=== PATIENT | male | born 1995 | race Caucasian/White ===

== ENCOUNTER 2017-08-30 13:18 | Emergency (ER) | payer SELFPAY ==
--- NOTE | 2017-08-30 15:36 | ER Document Report ---
ED Oral Problem - General Chief Complaint: Mouth Problem Stated Complaint: MOUTH PAIN Time Seen by Provider: 08/30/17 15:21 Mode of Arrival: Ambulatory Information source: Patient - HPI Patient complains to provider of: Toothache Onset: Yesterday Onset: Gradual Quality of pain: Achy Severity: Moderate Associated symptoms: Facial pain, Fever, Toothache. denies: Chills, Cough, Decreased appetite, Dental decay, Difficulty speaking, Drainage, Drooling, Earache, Headache, Jaw pain, Short of breath, Sweaty, Tongue swelling, Unable to swallow, White patches in mouth Notes: Patient arrives with complaints of left upper central incisor pain started yesterday. The patient has history of dental disease and has a partial in this area. Feels like the area swollen. He denies any injury. Reports that he had a fever yesterday. No fever today. No difficulty breathing or swallowing. He denies any nausea vomiting diarrhea. No rash. No swelling. No headache or blurred vision. No numbness tingling weakness. The patient denies any further complaints at this time. - Related Data Allergies/Adverse Reactions: amoxicillin [Amoxicillin] Allergy (Unknown, Verified 05/21/13 09:51) Penicillins Allergy (Verified 08/30/17 13:20) Past Medical History - Social History Smoking Status: Unknown if Ever Smoked Family History: Reviewed & Not Pertinent Pulmonary Medical History: Reports: Hx Asthma Psychiatric Medical History: Reports: Hx Depression Past Surgical History: Reports: Hx Orthopedic Surgery - R middle finger, Hx Tonsillectomy - Immunizations Immunizations up to date: Yes Hx Diphtheria, Pertussis, Tetanus Vaccination: Yes Review of Systems - Review of Systems -: Yes All other systems reviewed and negative Physical Exam - Vital signs Vitals: Temp Pulse Resp BP Pulse Ox 97.6 F 83 18 117/58 L 97 08/30/17 13:35 08/30/17 13:35 08/30/17 13:35 08/30/17 13:35 08/30/17 13:35 - Notes Notes: GENERAL: alert, cooperative, nontoxic, no distress. HEAD: normocephalic, atraumatic EYES: conjunctiva pink without discharge, no external redness or swelling. EARS: no external swelling, no external redness NOSE: atraumatic, no external swelling MOUTH/THROAT: mucous membranes moist and pink. Widespread dental decay. Tenderness to the gum of the left central incisor upper. There is no drainable abscess identified. No palatal swelling. No trismus or drooling. No facial swelling. No redness. No stridor. NECK: soft, supple, full range of motion, no meningismus. CHEST: no distress, lungs clear and equal throughout. No wheezing, rales, rhonchi. CARDIAC: regular rate and rhythm, no murmur, normal capillary refill, normal pulses. BACK: full range of motion, no CVA tenderness. EXTREMITIES: full range of motion of all extremities. No redness, no swelling. NEURO: alert and oriented 3, no focal deficits, full range of motion of all extremities. PYSCH: appropriate mood, affect. Patient is cooperative. SKIN: pink, warm, dry, no rash. Course - Re-evaluation Re-evalutation: 08/30/17 15:33 Patient is nontoxic appearing with stable vitals. The patient arrives with dental pain that started yesterday. The patient is noted to have widespread dental decay. The area of pain there is no obvious abscess but there is a dental caries noted. No drainable abscess noted. No facial swelling or facial cellulitis. No sign of Ortega's angina. Airway is patent and intact. Patient has a history of penicillin allergy, therefore the patient will be given a prescription for clindamycin as well as a prescription for Voltaren to take for pain. He will be given referrals to dentist with instructions to follow-up with a dentist at the next available appointment. He should follow-up sooner for increased pain, fever, swelling, difficulty breathing or swallowing, or for any further concerns. The patient's emergency department workup and current diagnosis were explained to the patient and or family. Follow-up instructions were provided. Medications if prescribed were discussed. Instructions for when to return to the emergency department including specific worrisome symptoms were discussed with the patient and/or family. - Vital Signs Vital signs: Temp Pulse Resp BP Pulse Ox 97.6 F 83 18 117/58 L 97 08/30/17 13:35 08/30/17 13:35 08/30/17 13:35 08/30/17 13:35 08/30/17 13:35 Discharge - Discharge Clinical Impression: Pain, dental Condition: Stable Disposition: HOME, SELF-CARE Instructions: Clindamycin ([facility]), Toothache ([facility]), Dentist Additional Instructions: Take medications as prescribed. Follow-up with a dentist at the next available appointment. Follow-up sooner for increased pain, fever, difficulty breathing or swallowing, or for any further concerns. Prescriptions: Clindamycin HCl 300 mg PO TID #60 capsule Diclofenac Sodium [Voltaren 50 Mg Tablet.Dr] 50 mg PO BID #20 tablet.dr Forms: Smoking Cessation Education
[2017-08-30 16:12] VITALS: BP 125/74
== END 2017-08-30 16:12 | disposition home or self-care (01) ==
LOC: ER 13:18
DX: K02.9 Dental caries, unspecified (principal); K08.89 Other specified disorders of teeth and supporting structures; J45.909 Unspecified asthma, uncomplicated; Z88.0 Allergy status to penicillin
CPT/HCPCS: 99282

== ENCOUNTER 2017-09-01 09:45 | Emergency (ER) | payer SELFPAY ==
[2017-09-01] MEDS ORDERED: LIDOCAINE 1% INJ-PF (10 MG/ML) 30 ML SDV INJ ONE (10:47)
--- NOTE | 2017-09-01 11:32 | ER Document Report ---
HPI - HPI Pain Level: 5 Past Medical History - Social History Smoking Status: Never Smoker Chew tobacco use (# tins/day): No Frequency of alcohol use: None Drug Abuse: None Family History: Reviewed & Not Pertinent Patient has suicidal ideation: No Patient has homicidal ideation: No Pulmonary Medical History: Reports: Hx Asthma Renal/ Medical History: Denies: Hx Peritoneal Dialysis Psychiatric Medical History: Reports: Hx Depression Past Surgical History: Reports: Hx Orthopedic Surgery - R middle finger, Hx Tonsillectomy - Immunizations Immunizations up to date: Yes Hx Diphtheria, Pertussis, Tetanus Vaccination: Yes Vertical Provider Document - INFECTION CONTROL TRAVEL OUTSIDE OF THE [place] IN LAST 30 DAYS: No - RESPIRATORY O2 Sat by Pulse Oximetry: 96 Course - Re-evaluation Re-evalutation: 09/01/17 11:32 procedure: 1% lidocaine 1 ml to anesthetize the abscess above the front left incisor, 2ml pus withdrawn with 18 gauge needle. Pt has more clindamycin to take 09/01/17 11:43 apical pulse 96 at this time, states less pressure - Vital Signs Vital signs: Temp Pulse Resp BP Pulse Ox 99.3 F 120 H 18 139/71 H 96 09/01/17 09:48 09/01/17 09:48 09/01/17 09:48 09/01/17 09:48 09/01/17 09:48 Discharge - Discharge Clinical Impression: Dental abscess drainage Condition: Good Disposition: HOME, SELF-CARE Instructions: Dentist, Dental Infection or Abscess ([facility]), Clindamycin ([facility]) Additional Instructions: warm compress today, it will continue to drain to er any concerns see the dentist
[2017-09-01 11:53] VITALS: BP 118/69
== END 2017-09-01 11:54 | disposition home or self-care (01) ==
LOC: ER 09:45
DX: K04.7 Periapical abscess without sinus (principal); J45.909 Unspecified asthma, uncomplicated
CPT/HCPCS: 99282; 10021; J3490

== ENCOUNTER 2018-10-08 08:17 | Emergency (ER) | payer SELFPAY ==
[2018-10-08 08:22] VITALS: BP 150/65
[2018-10-08] MEDS ORDERED: NORMAL SALINE 1000 ML 1,000 ML IV ONE (09:36)
[2018-10-08] MEDS ORDERED: MORPHINE SULFATE 10 MG/ML INJ IV ONE (09:36)
[2018-10-08] MEDS ORDERED: ONDANSETRON HCL INJ/PF 4 MG/2 ML SDV IV ONE (09:36)
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
[2018-10-08 10:28] LABS: ABSOLUTE LYMPHOCYTES (AUTO) 1.6 10^3/uL (0.5-4.7); ABSOLUTE MONOCYTES (AUTO) 0.4 10^3/uL (0.1-1.4); ABSOLUTE NEUT (AUTO) 4.4 10^3/uL (1.7-8.2); BASOPHILS % (AUTO) 0.3 % (0-2); EOSINOPHILS % (AUTO) 0.4 % (0-6); HEMATOCRIT 48.2 % (37.9-51.0); LYMPHOCYTES % (AUTO) 25.4 % (13-45); MEAN CORPUSCULAR HEMOGLOBIN 30.4 pg (27.0-33.4); MEAN CORPUSCULAR HGB CONC 35.3 g/dL (32.0-36.0); MEAN CORPUSCULAR VOLUME 86 fl (80-97); MONOCYTES % (AUTO) 6.3 % (3-13); PLATELET COUNT 257 10^3/uL (150-450); RED CELL DISTRIBUTION WIDTH 12.9 % (11.5-14.0); SEGMENTED NEUTROPHILS % (AUTO) 67.6 % (42-78); TOTAL CELLS COUNTED % (AUTO) 100 %; WHITE BLOOD COUNT 6.5 10^3/uL (4.0-10.5)
[2018-10-08 10:51] LABS: ANION GAP 13 (5-19); BLOOD UREA NITROGEN 10 mg/dL (7-20); CALCIUM 11.7 mg/dL (8.4-10.2); CARBON DIOXIDE 28 mmol/L (22-30); CHLORIDE 103 mmol/L (98-107); GLUCOSE 102 mg/dL (75-110); POTASSIUM 4.2 mmol/L (3.6-5.0)
[2018-10-08 11:36] LABS: APPEARANCE,URINE CLEAR; BILIRUBIN,URINE NEGATIVE (NEGATIVE); COLOR,URINE YELLOW; GLUCOSE, URINE NEGATIVE (NEGATIVE); KETONES,URINE TRACE mg/dL (NEGATIVE); LEUKOCYTE ESTERASE,URINE NEGATIVE (NEGATIVE); NITRITE,URINE NEGATIVE (NEGATIVE); PROTEIN,URINE NEGATIVE (NEGATIVE); URINE SPECIFIC GRAVITY 1.016; UROBILINOGEN,URINE NEGATIVE mg/dL (<2.0)
--- NOTE | 2018-10-08 12:07 | RADIOLOGY REPORT (SQ) ---
EXAM DESCRIPTION: U/S SCROTUM W/DOPPLER COMPLETED DATE/TIME: 10/08/2018 11:38 am REASON FOR STUDY: pain COMPARISON: 12/04/2013 TECHNIQUE: Static and realtime robison scale imaging of the scrotum and testes. Selected color Doppler and spectral images recorded to document blood flow. LIMITATIONS: None. FINDINGS: RIGHT: TESTICLE: Normal size measuring 4.1 x 3.3 x 2.5 cm. Normal echotexture. Normal blood flow. No mass. EPIDIDYMIS: Unremarkable in size. The epididymal head measures 1.2 cm maximally. There is a 3 mm ep ididymal head cysts. HYDROCELE OR VARICOCELE: Trace hydrocele. HERNIA OR EXTRA-TESTICULAR MASS: No. OTHER: No other significant finding. LEFT: TESTICLE: Normal size measuring 3.9 x 2.6 x 2.5 cm. Normal echotexture. Normal blood flow. No mass. EPIDIDYMIS: Unremarkable in size. Epididymal head measures 1.4 cm maximally. There is a 2 mm cyst. HYDROCELE OR VARICOCELE: Trace hydrocele. HERNIA OR EXTRA-TESTICULAR MASS: No. OTHER: 3 mm calcification along the medial left testicle(scrotal muriel), unchanged. IMPRESSION: Unremarkable testicular parenchyma bilaterally. No evidence of torsion. Trace hydroceles with small epididymal head cysts. TECHNICAL DOCUMENTATION: JOB ID: [id number]- All Rights Reserved Reading location - IP/workstation name: [email or web address]
[2018-10-08 13:46] LABS: CHLAM PCR NOT DETECTED (NOT DETECT); GON PCR NOT DETECTED (NOT DETECT)
== END 2018-10-08 12:49 | disposition home or self-care (01) ==
LOC: ER 08:17
DX: N50.811 Right testicular pain (principal); G89.29 Other chronic pain; N43.3 Hydrocele, unspecified; R50.9 Fever, unspecified; N50.3 Cyst of epididymis; J45.909 Unspecified asthma, uncomplicated; Z88.0 Allergy status to penicillin; Z87.442 Personal history of urinary calculi
CPT/HCPCS: 99284; 96361; 96374; 96375; 36415; 85025; 80048; 81001; 87491; 87591; 76870; 93976; J2270; J2405; J7030

== ENCOUNTER 2020-08-05 17:44 | Emergency (ER) | payer SELFPAY ==
[2020-08-05] MEDS ORDERED: MORPHINE SULFATE 10 MG/ML INJ IV ONE (18:55)
--- NOTE | 2020-08-05 18:59 | ER Document Report ---
ED Medical Screen (RME) - General Chief Complaint: Flank Pain Stated Complaint: FLANK PAIN Time Seen by Provider: 08/05/20 18:51 TRAVEL OUTSIDE OF THE [place] IN LAST 30 DAYS: No - HPI Notes: 08/05/20 18:57 24-year-old male presents to ED for evaluation of right-sided flank pain over the last several days. Notes history of stones in the past. Patient believes he passed a kidney stone 2 days ago. Reports that the pain is radiating from his right flank into his lower groin and is worse when he urinates. Denies fever chills or other complaints. - Related Data Allergies/Adverse Reactions: amoxicillin [Amoxicillin] Allergy (Unknown, Verified 08/05/20 18:44) Penicillins Allergy (Verified 08/05/20 18:44) Past Medical History - Social History Chew tobacco use (# tins/day): No Frequency of alcohol use: None Drug Abuse: None Pulmonary Medical History: Reports: Hx Asthma Renal/ Medical History: Denies: Hx Peritoneal Dialysis Psychiatric Medical History: Reports: Hx Depression Past Surgical History: Reports: Hx Orthopedic Surgery - R middle finger, Hx Tonsillectomy - Immunizations Immunizations up to date: Yes Hx Diphtheria, Pertussis, Tetanus Vaccination: Yes Physical Exam - Vital signs Vitals: Temp Pulse Resp BP Pulse Ox 97.9 F 106 H 20 129/67 H 99 08/05/20 17:48 08/05/20 17:48 08/05/20 17:48 08/05/20 17:48 08/05/20 17:48 General: No acute distress. Alert and oriented x3. Sitting comfortably in a stretcher. Skin: Intact without any jaundice, pallor, or erythema. Warm and dry. Lungs: Clear to ausculation bilaterally. No wheezes, rhonchi, rales. Equal chest expansion. No retractions. Abdomen: Soft, nontender to palpation, nondistended. Positive bowel sounds in all 4 quadrants. No hepatosplenomegaly. No masses. CVA tenderness to right side. Neuro: GCS 15. Moving all extremities without discomfort. Extremities: No calf tenderness or edema. No cyanosis or clubbing. Radial and pedal pulses 2+ bilaterally. Brisk capillary refill. Psych: Mood and affect appropriate. Course - Vital Signs Vital signs: Temp Pulse Resp BP Pulse Ox 97.9 F 106 H 20 129/67 H 99 08/05/20 17:48 08/05/20 17:48 08/05/20 17:48 08/05/20 17:48 08/05/20 17:48
[2020-08-05] MEDS ORDERED: MORPHINE SULFATE 10 MG/ML INJ IM ONE (19:36)
[2020-08-05 19:47] LABS: ABSOLUTE BASOPHILS # (AUTO) 0.1 10^3/uL (0.0-0.2); ABSOLUTE EOSINOPHILS # (AUTO) 0.2 10^3/uL (0.0-0.6); ABSOLUTE LYMPHOCYTES (AUTO) 2.6 10^3/uL (0.5-4.7); ABSOLUTE MONOCYTES (AUTO) 0.7 10^3/uL (0.1-1.4); ABSOLUTE NEUT (AUTO) 4.2 10^3/uL (1.7-8.2); BASOPHILS % (AUTO) 0.7 % (0-2); EOSINOPHILS % (AUTO) 2.4 % (0-6); HEMOGLOBIN 15.3 g/dL (13.5-17.0); MEAN CORPUSCULAR HEMOGLOBIN 30.1 pg (27.0-33.4); MEAN CORPUSCULAR HGB CONC 34.9 g/dL (32.0-36.0); MEAN CORPUSCULAR VOLUME 86 fl (80-97); MONOCYTES % (AUTO) 9.6 % (3-13); PLATELET COUNT 244 10^3/uL (150-450); RED CELL DISTRIBUTION WIDTH 13.1 % (11.5-14.0); SEGMENTED NEUTROPHILS % (AUTO) 54.3 % (42-78); TOTAL CELLS COUNTED % (AUTO) 100 %; WHITE BLOOD COUNT 7.8 10^3/uL (4.0-10.5)
[2020-08-05 19:53] LABS: APPEARANCE,URINE SLIGHTLY-CLOUDY; BILIRUBIN,URINE NEGATIVE (NEGATIVE); CALCIUM OXALATE CRYSTALS,URINE MODERATE /HPF; COLOR,URINE YELLOW; GLUCOSE, URINE NEGATIVE (NEGATIVE); KETONES,URINE NEGATIVE (NEGATIVE); LEUKOCYTE ESTERASE,URINE NEGATIVE (NEGATIVE); NITRITE,URINE NEGATIVE (NEGATIVE); PROTEIN,URINE 30 mg/dL (NEGATIVE); UROBILINOGEN,URINE NEGATIVE mg/dL (<2.0)
[2020-08-05 20:04] LABS: ALBUMIN 4.5 g/dL (3.5-5.0); ALKALINE PHOSPHATASE 79 U/L (38-126); ANION GAP 6 (5-19); ASPARTATE AMINO TRANSFERASE 26 U/L (17-59); BILIRUBIN,DIRECT 0.1 mg/dL (0.0-0.4); BILIRUBIN,TOTAL 0.4 mg/dL (0.2-1.3); BLOOD UREA NITROGEN 12 mg/dL (7-20); CALCIUM 9.9 mg/dL (8.4-10.2); CARBON DIOXIDE 33 mmol/L (22-30); CHLORIDE 102 mmol/L (98-107); GLUCOSE 88 mg/dL (75-110); TOTAL PROTEIN 7.4 g/dL (6.3-8.2)
--- NOTE | 2020-08-05 20:21 | RADIOLOGY REPORT (SQ) ---
EXAM DESCRIPTION: CT ABD/PELVIS NO ORAL OR IV CLINICAL HISTORY: 24 years Male; flank pain TECHNIQUE: CT of the abdomen and pelvis without intravenous contrast.. Oral contrastWas not used. All CT scans at this facility use dose modulation, iterative reconstruction, and/or weight based dosing when appropriate to reduce radiation dose to as low as reasonably achievable. This exam was performed according to our department optimization program which includes automated exposure control, adjustment of the mA and/or kv according to patient size and/or use of iterative reconstruction technique. COMPARISON: None. FINDINGS: Lower chest:The lung bases are clear. The visualized portion of heart and great vessels are normal. Abdomen: Liver and biliary tree: Unenhanced liver and gallbladder are unremarkable. Pancreas: Normal Spleen:Within normal limits Kidneys: There is right-sided hydronephrosis and hydroureter. This is secondary to a 4 mm proximal ureteral stone. There is perinephric and periureteral edema also seen on the right. Distally the ureter is decompressed. The left kidney is normal. No renal stones are seen bilaterally. Adrenal glands:Within normal limits Vascular structures:Within normal limits Retroperitoneum: No mass or lymphadenopathy Abdominal wall: Small umbilical hernia containing omentum. GI: Large amount of ingested material is noted in the stomach. The bowel is of normal caliber. No focal bowel wall thickening. No inflammation. Appendix: The appendix appears normal. General: No free air. No free fluid Pelvis: Lymph nodes: No mass or lymphadenopathy Bladder: Bladder is mostly empty. Pelvis: No pelvic mass or adenopathy. Bones: No acute bone findings. IMPRESSION: Right-sided hydronephrosis and hydroureter secondary to a 4 mm proximal ureteral stone.
--- NOTE | 2020-08-05 20:39 | ER Document Report ---
ED GI/ - General Chief Complaint: Flank Pain Stated Complaint: FLANK PAIN Time Seen by Provider: 08/05/20 18:51 TRAVEL OUTSIDE OF THE [place] IN LAST 30 DAYS: No - HPI Notes: 08/05/20 20:33 24-year-old male presents to ED for evaluation of right sided flank pain for the last 2 days. Patient reports pain radiates into the corresponding lower abdomen. Patient reports nausea, vomiting, and dysuria. Patient denies penile discharge, chest pain, shortness of breath, rash, fever, chills, or diarrhea. Reports history of nephrolithiasis in the past. Notes that the last time was in 2014. States that he does not have a urologist and has never required a stent in the past. - Related Data Allergies/Adverse Reactions: amoxicillin [Amoxicillin] Allergy (Unknown, Verified 08/05/20 18:44) Penicillins Allergy (Verified 08/05/20 18:44) Past Medical History - Social History Smoking Status: Never Smoker Chew tobacco use (# tins/day): No Frequency of alcohol use: None Drug Abuse: None Family History: Reviewed & Not Pertinent Patient has homicidal ideation: No Pulmonary Medical History: Reports: Hx Asthma Renal/ Medical History: Denies: Hx Peritoneal Dialysis Psychiatric Medical History: Reports: Hx Depression Past Surgical History: Reports: Hx Orthopedic Surgery - R middle finger, Hx Tonsillectomy - Immunizations Immunizations up to date: Yes Hx Diphtheria, Pertussis, Tetanus Vaccination: Yes Review of Systems - Review of Systems Notes: Constitutional: Negative for fever. HENT: Negative for sore throat. Eyes: Negative for visual changes. Cardiovascular: Negative for chest pain. Respiratory: Negative for shortness of breath. Gastrointestinal: Negative for abdominal pain, vomiting or diarrhea. Genitourinary: Negative for dysuria. Musculoskeletal: Negative for back pain. + for flank pain. Skin: Negative for rash. Neurological: Negative for headaches, weakness or numbness. 10 point ROS negative except as marked above and in HPI. Physical Exam - Vital signs Vitals: Temp Pulse Resp BP Pulse Ox 97.9 F 106 H 20 129/67 H 99 08/05/20 17:48 08/05/20 17:48 08/05/20 17:48 08/05/20 17:48 08/05/20 17:48 General: No acute distress. Alert and oriented x3. Sitting comfortably in a stretcher. Skin: No jaundice, pallor, petechiae, or rashes. Warm and dry. Heart: Regular rate and rhythm. S1,S2. No murmurs, rubs, or gallops. Lungs: Clear to auscultation bilaterally. No wheezes, rhonchi, rales. Equal chest expansion. No retractions. Abdomen: Soft, tender to palpation in the right lower abdomen, nondistended. Positive bowel sounds in all 4 quadrants. No masses. CVA tenderness to the right side Back: No midline spinal TTP. No paraspinous muscular TTP. Neuro: GCS 15. Moving all extremities without discomfort. Psych: Mood and affect appropriate. Course - Re-evaluation Re-evalutation: 08/05/20 20:36 24-year-old patient presents to ED for evaluation of right sided flank pain. Patient was evaluated with CBC, CMP, UA. Lab work was found to be notable for blood in the urine and crystals. Patient further evaluated with CT scan of the abdomen and pelvis which was positive for right sided hydronephrosis and hydroureter with 4 mm stone. Imaging results discussed with the patient. Patient treated symptomatically with pain management, tordol, and zofran and flomax. Pain most likely secondary to nephrolithiasis. Patient advised to eat a bland diet and will be continued on the same. Patient understands to follow up with primary care physician as well as urology. Patient understands indications to return to the ER. Patient is agreeable with this plan. 08/05/20 21:06 - Vital Signs Vital signs: Temp Pulse Resp BP Pulse Ox 97.9 F 106 H 20 129/67 H 99 08/05/20 17:48 08/05/20 17:48 08/05/20 17:48 08/05/20 17:48 08/05/20 17:48 - Laboratory Results Result Diagrams: 08/05/20 19:30 08/05/20 19:30 Laboratory Results Interpreted: 08/05/20 08/05/20 19:30 19:30 Carbon Dioxide 33 H Urine Protein 30 H Urine Blood LARGE H Critical Laboratory Results Reviewed: No Critical Results - Radiology Results Critical Radiology Results Reviewed: No Critical Results Discharge - Discharge Clinical Impression: Nephrolithiasis, Flank pain Hydronephrosis Qualifiers: Hydronephrosis type: with renal calculous obstruction Qualified Code(s): N13.2 - Hydronephrosis with renal and ureteral calculous obstruction Condition: Stable Disposition: HOME, SELF-CARE Instructions: Toradol Injection ([facility]), Abdominal Pain ([facility]) Prescriptions: Ketorolac Tromethamine [Toradol 10 mg Tablet] 10 mg PO Q8HP PRN #15 tablet PRN Reason: Tamsulosin HCl [Flomax 0.4 mg Cap.sr] 0.4 mg PO DAILY #7 cap.sr.24h Hydrocodone/Acetaminophen [Clune 7.5-325 Tablet] 1 each PO TID #9 tablet Ondansetron [Zofran Odt 4 mg Tablet] 1 - 2 tab PO Q4H PRN #15 tab.rapdis PRN Reason: For Nausea/Vomiting Referrals: KAREN DUMONT MD [NO LOCAL MD] - Follow up as needed
[2020-08-05] MEDS ORDERED: HYDROCODONE/ACETAMINOPHEN 5-325 MG (6 TAB/ER DISP) PO PRN (21:02)
[2020-08-05] MEDS ORDERED: ONDANSETRON 4 MG TAB.RAPDIS PO ONE (21:02)
[2020-08-05] MEDS ORDERED: ONDANSETRON ODT 4 MG TAB (6 TAB/ER DISP) PO PRN (21:02)
[2020-08-05] MEDS ORDERED: KETOROLAC TROMETHAMINE 60 MG/2 ML SDV IM ONE (21:02)
[2020-08-05 21:25] VITALS: BP 127/66
== END 2020-08-05 21:25 | disposition home or self-care (01) ==
LOC: ER 17:44
DX: N13.2 Hydronephrosis with renal and ureteral calculous obstruction (principal); R31.9 Hematuria, unspecified; R11.2 Nausea with vomiting, unspecified; R30.0 Dysuria; R10.9 Unspecified abdominal pain; R10.813 Right lower quadrant abdominal tenderness; J45.909 Unspecified asthma, uncomplicated; Z88.0 Allergy status to penicillin
CPT/HCPCS: 99285; 96372; 36415; 83690; 85025; 80053; 81001; 74176; J1885; S0119; J2270

== ENCOUNTER 2020-08-13 13:24 | Emergency (ER) | payer SELFPAY ==
[2020-08-13] MEDS ORDERED: HYDROCODONE/ACETAMINOPHEN 10-325 MG TABLET PO ONE (14:35)
[2020-08-13] MEDS ORDERED: NORMAL SALINE 1000 ML 1,000 ML IV ONE (14:36)
[2020-08-13] MEDS ORDERED: KETOROLAC TROMETHAMINE INJ/PF 30 MG/1 ML SDV IV ONE (14:36)
--- NOTE | 2020-08-13 14:40 | ER Document Report ---
ED Medical Screen (RME) - General Chief Complaint: Possible Kidney Stone Stated Complaint: POSSIBLE KIDNEY STONES Time Seen by Provider: 08/13/20 14:33 Primary Care Provider: JOSE R MENDEZ [Primary Care Provider] - Follow up as needed TRAVEL OUTSIDE OF THE [place] IN LAST 30 DAYS: No - HPI Notes: 08/13/20 14:37 24-year-old male presents to the emergency room today for evaluation of right flank pain, pain is 5/5 has become progressively worse since he was seen in the emergency room a week ago. Reports he had a 4 mm stone that was "stuck", he has not had an opportunity to follow-up with urologist due to limitations with obtaining rides. States he is voiding but they are only small amounts of urine. Reports nausea and vomiting, has been taking Zofran that was prescribed to him last week. Denies any fevers or chills. Has tried [id number] Tylenol, ibuprofen and heat as well as drinking apple cider vinegar to help with his kidney stones without any relief. I have greeted and performed a rapid initial assessment of this patient. A comprehensive ED assessment and evaluation of the patient, analysis of test results and completion of the medical decision making process will be conducted by additional ED providers. PHYSICAL EXAMINATION: GENERAL: Well-appearing, well-nourished and in no acute distress. CV: s1, s2 regular LUNGS: No respiratory distress ABD: R cva tenderness on palpation The patient was evaluated during a global COVID-19 pandemic and that diagnosis was suspected/considered upon their initial presentation. Their evaluation, treatment and testing was consistent with current guidelines for patients who present with complaints or symptoms and may be related to COVID-19. - Related Data Allergies/Adverse Reactions: amoxicillin [Amoxicillin] Allergy (Unknown, Verified 08/05/20 18:44) Penicillins Allergy (Verified 08/05/20 18:44) Past Medical History Pulmonary Medical History: Reports: Hx Asthma Renal/ Medical History: Denies: Hx Peritoneal Dialysis Psychiatric Medical History: Reports: Hx Depression Past Surgical History: Reports: Hx Orthopedic Surgery - R middle finger, Hx Tonsillectomy - Immunizations Immunizations up to date: Yes Hx Diphtheria, Pertussis, Tetanus Vaccination: Yes Physical Exam - Vital signs Vitals: Temp Pulse Resp BP Pulse Ox 98.2 F 121 H 20 144/87 H 96 08/13/20 13:54 08/13/20 13:54 08/13/20 13:54 08/13/20 13:54 08/13/20 13:54 Course - Vital Signs Vital signs: Temp Pulse Resp BP Pulse Ox 98.2 F 121 H 20 144/87 H 96 08/13/20 13:54 08/13/20 13:54 08/13/20 13:54 08/13/20 13:54 08/13/20 13:54 Doctor's Discharge - Discharge Referrals: LOCALMD,NO [Primary Care Provider] - Follow up as needed
[2020-08-13 15:27] LABS: AMORPHOUS SEDIMENT,URINE TRACE /HPF; APPEARANCE,URINE SLIGHTLY-CLOUDY; BILIRUBIN,URINE NEGATIVE (NEGATIVE); COLOR,URINE YELLOW; GLUCOSE, URINE NEGATIVE (NEGATIVE); KETONES,URINE NEGATIVE (NEGATIVE); LEUKOCYTE ESTERASE,URINE TRACE (NEGATIVE); NITRITE,URINE NEGATIVE (NEGATIVE); PROTEIN,URINE NEGATIVE (NEGATIVE); URINE SPECIFIC GRAVITY 1.012; UROBILINOGEN,URINE NEGATIVE mg/dL (<2.0)
--- NOTE | 2020-08-13 16:07 | RADIOLOGY REPORT (SQ) ---
EXAM DESCRIPTION: U/S RETROPERITON (RENAL/AORTA) IMAGES COMPLETED DATE/TIME: 08/13/2020 3:54 pm REASON FOR STUDY: R renal pain, hx of nephrolithiasis COMPARISON: None. TECHNIQUE: Dynamic and static grayscale images acquired of the kidneys and bladder and recorded on P ACS. Additional selected color Doppler and spectral images recorded. LIMITATIONS: None. FINDINGS: RIGHT KIDNEY: Normal size. Normal echogenicity. No solid or suspicious masses. Pelv iectasis 2.2 cm. No calcifications. LEFT KIDNEY: Normal size. Normal echogenicity. No solid or suspicious masses. No hydronephrosi s. No calcifications. BLADDER: Decompressed. OTHER FINDINGS: No other significant finding. IMPRESSION: Dilated right renal pelvis without visualized urinary tract stones. TECHNICAL DOCUMENTATION: JOB ID: [id number] 2010 [employer]- All Rights Reserved Reading location - IP/workstation name: [email or web address]
[2020-08-13] MEDS ORDERED: KETOROLAC TROMETHAMINE INJ/PF 30 MG/1 ML SDV ONE (17:03)
[2020-08-13 17:33] LABS: ABSOLUTE EOSINOPHILS # (AUTO) 0.2 10^3/uL (0.0-0.6); ABSOLUTE LYMPHOCYTES (AUTO) 2.7 10^3/uL (0.5-4.7); ABSOLUTE MONOCYTES (AUTO) 0.7 10^3/uL (0.1-1.4); ABSOLUTE NEUT (AUTO) 4.3 10^3/uL (1.7-8.2); BASOPHILS % (AUTO) 0.6 % (0-2); EOSINOPHILS % (AUTO) 3.1 % (0-6); HEMATOCRIT 44.4 % (37.9-51.0); HEMOGLOBIN 15.4 g/dL (13.5-17.0); MEAN CORPUSCULAR HGB CONC 34.7 g/dL (32.0-36.0); MEAN CORPUSCULAR VOLUME 86 fl (80-97); MONOCYTES % (AUTO) 9.1 % (3-13); PLATELET COUNT 272 10^3/uL (150-450); RED BLOOD COUNT 5.13 10^6/uL (4.35-5.55); RED CELL DISTRIBUTION WIDTH 13.4 % (11.5-14.0); SEGMENTED NEUTROPHILS % (AUTO) 53.2 % (42-78); TOTAL CELLS COUNTED % (AUTO) 100 %; WHITE BLOOD COUNT 8.1 10^3/uL (4.0-10.5)
[2020-08-13 17:50] LABS: ALBUMIN 4.6 g/dL (3.5-5.0); ALKALINE PHOSPHATASE 93 U/L (38-126); ANION GAP 9 (5-19); ASPARTATE AMINO TRANSFERASE 32 U/L (17-59); BILIRUBIN,DIRECT 0.2 mg/dL (0.0-0.4); BILIRUBIN,TOTAL 0.4 mg/dL (0.2-1.3); BLOOD UREA NITROGEN 13 mg/dL (7-20); CALCIUM 10.1 mg/dL (8.4-10.2); CARBON DIOXIDE 29 mmol/L (22-30); CHLORIDE 103 mmol/L (98-107); GLUCOSE 97 mg/dL (75-110); TOTAL PROTEIN 7.5 g/dL (6.3-8.2)
[2020-08-13 20:52] VITALS: BP 138/82
[2020-08-13] MEDS ORDERED: HYDROCODONE/ACETAMINOPHEN 5-325 MG TABLET PO ONE (21:20)
--- NOTE | 2020-08-13 21:25 | ER Document Report ---
ED GI/ - General Chief Complaint: Flank Pain Stated Complaint: POSSIBLE KIDNEY STONES Time Seen by Provider: 08/13/20 14:33 Primary Care Provider: [facility] [Provider Group] - Follow up as needed [facility] [Provider Group] - Follow up as needed [facility] [Provider Group] - Follow up as needed [facility] [Provider Group] - Follow up as needed [facility] [Provider Group] - Follow up as needed KAREN DUMONT MD [NO LOCAL MD] - Follow up in 3-5 days JOSE R MENDEZ [NO LOCAL ] - Follow up as needed Mode of Arrival: Ambulatory Information source: Patient Notes: 24-year-old male presented to ED for complaint of right flank pain. He did have the pain of 5 out of 5 when he came to the emergency room. He was treated with Zofran Toradol and Flomax and Raven. He states last time he was here he had a 4 mm stone stuck in his urethra. He did not follow-up with a urologist because he could not find a ride. He states he has been having nausea and vomiting and is taking the Zofran he was prescribed last week. He denies any fevers chills. For examined the patient he had had blood and urine sent. His CT was negative for stone but he did have some dilatation still in the ureter he did still have blood in his urine. Constitutional: Negative for fever. HENT: Negative for sore throat. Eyes: Negative for visual changes. Cardiovascular: Negative for chest pain. Respiratory: Negative for shortness of breath. Gastrointestinal: Negative for abdominal pain, vomiting or diarrhea. Genitourinary: Right flank pain history of kidney stone recently. Musculoskeletal: Right flank pain Skin: Negative for rash. Neurological: Negative for headaches, weakness or numbness. 10 point ROS negative except as marked above and in HPI. VITAL SIGNS: Within normal limits. GENERAL: No acute distress, non-toxic appearance. HEAD: Normal with no signs of head trauma. EYES: PERRLA, EOMI, conjunctiva normal, no discharge. EARS: Hearing grossly intact. NOSE: Normal. THROAT: Oropharynx is normal. NECK: Normal range of motion, no tenderness, supple, no lymphadenopathy, No adenopathy, no JVD. CHEST: Clear breath sounds bilaterally. No wheezes, rales, or rhonchi. CARDIAC: Regular rate and rhythm. S1 and S2, without murmurs, gallops, or rubs. VASCULAR: No Edema. Peripheral pulses normal and equal in all extremities. ABDOMEN: Normal and soft with no tenderness, no masses or pulsatile masses. GASTROINTESTINAL: Bowel sounds normal GENITOURINARY: Right flank tenderness LYMPATHTIC: No lymphadenopathy noted. MUSCULOSKELETAL: Good range of motion of all major joints. Extremities without clubbing, cyanosis or edema. NEUROLOGICAL: Alert and oriented x 3. No focal sensory or strength deficits. Speech normal. Follows commands appropriately. PSYCHIATRIC: Normal Affect, judgement and mood. SKIN: Normal appearance with no rashes or lesions. TRAVEL OUTSIDE OF THE [place] IN LAST 30 DAYS: No - HPI Patient complains to provider of: Flank pain - Related Data Allergies/Adverse Reactions: amoxicillin [Amoxicillin] Allergy (Unknown, Verified 08/05/20 18:44) Penicillins Allergy (Verified 08/05/20 18:44) Past Medical History - General Information source: Patient - Social History Smoking Status: Never Smoker Frequency of alcohol use: None Drug Abuse: None Lives with: Family Family History: Reviewed & Not Pertinent Patient has suicidal ideation: No Patient has homicidal ideation: No - Past Medical History Cardiac Medical History: Reports: None Pulmonary Medical History: Reports: Hx Asthma EENT Medical History: Reports: None Neurological Medical History: Reports: None Endocrine Medical History: Reports: None Renal/ Medical History: Reports: Hx Kidney Stones Malignancy Medical History: Reports None GI Medical History: Reports: None Musculoskeletal Medical History: Reports None Skin Medical History: Reports None Psychiatric Medical History: Reports: Hx Depression Traumatic Medical History: Reports: None Infectious Medical History: Reports: None Past Surgical History: Reports: Hx Orthopedic Surgery - R middle finger, Hx Tonsillectomy - Immunizations Immunizations up to date: Yes Hx Diphtheria, Pertussis, Tetanus Vaccination: Yes Physical Exam - Vital signs Vitals: Temp Pulse Resp BP Pulse Ox 98.2 F 121 H 20 144/87 H 96 08/13/20 13:54 08/13/20 13:54 08/13/20 13:54 08/13/20 13:54 08/13/20 13:54 Course - Vital Signs Vital signs: Temp Pulse Resp BP Pulse Ox 97.9 F 85 20 138/82 H 98 08/13/20 20:51 08/13/20 20:51 08/13/20 20:51 08/13/20 20:51 08/13/20 20:51 - Laboratory Results Result Diagrams: 08/13/20 17:17 08/13/20 17:17 Laboratory Results Interpreted: 08/13/20 15:00 Urine Blood SMALL H Ur Leukocyte Esterase TRACE H Critical Laboratory Results Reviewed: No Critical Results - Radiology Results Critical Radiology Results Reviewed: No Critical Results Discharge - Discharge Clinical Impression: Right flank pain Condition: Stable Disposition: HOME, SELF-CARE Additional Instructions: Flank Pain We weren't able to prove an exact cause for your flank pain. Pain in the flank can be caused by a muscle strain or spasm. Sometimes a kidney stone causes pain, but can't be found on our tests. Infection in the kidney should be evident on a urine test. Early shingles can occasionally cause flank pain, without the rash that proves the diagnosis. On rare occasions, disease of the pancreas, aorta, spleen, or colon can create pain in the flank. At this time, there's no evidence of a dangerous condition, and it seems safe for you to be at home. If the pain goes away and does not come back, no further testing will be needed. If pain persists, or becomes more severe, we may need to repeat some tests or order additional new testing. Blood in the urine, urgency to urinate frequently, and pain that radiates to the groin can indicate a kidney stone. Fever may mean that the pain is due to infection, either of the kidney or the colon (diverticulitis). If your pain is early shingles, you should develop an eruption of blisters in the painful area within a few days. Call the doctor or return if you have pain that is spreading or becoming more severe, pain that does not resolve with time, fever, or any other new symptoms. Did have a kidney stone that has passed. You still have some dilatation in your ducts. That means they are still a little bit swollen. You did have some hydronephrosis that is improving. Stone that was seen on 05 August is passed. It is important that you follow-up with the urologist as you were instructed. I have also given you several primary care that you can pick from to follow-up with. Acetaminophen Acetaminophen may be taken for pain relief or fever control. It's much safer than aspirin, offering a wider range of "safe" dosages. It is safe during . Some brand names are Tylenol, Panadol, Datril, Anacin 3, Tempra, and Liquiprin. Acetaminophen can be repeated every four hours. The following are maximum recommended dosages: WEIGHT Dose Drops Elixir Chewable(80mg) (LBS.) drprs=droppers tsp=teaspoon 6 40 mg .4 ml (1/2) 6-11 80 mg .8 ml (full) 1/2 tsp 1 tab 12-16 120 mg 1 1/2 drprs 3/4 tsp 1 1/2 tabs 17-23 160 mg 2 drprs 1 tsp 2 tabs 24-30 240 mg 3 drprs 1 1/2 tsp 3 tabs 30-35 320 mg 2 tsp 4 tabs 36-41 360 mg 2 1/4 tsp 4 1/2 tabs 42-47 400 mg 2 1/2 tsp 5 tabs 48-53 480 mg 3 tsp 6 tabs 54-59 520 mg 3 1/4 tsp 6 1/2 tabs 60-64 560 mg 3 1/2 tsp 7 tabs 65-70 600 mg 3 3/4 tsp 7 1/2 tabs 71-76 640 mg 4 tsp 8 tabs 77-82 720 mg 4 1/2 tsp 9 tabs 83-88 800 mg 5 tsp 10 tabs >89 pounds or adults 650 mg to 900 mg Acetaminophen can be repeated every four hours. Maximum daily dose not to exceed 4000 mg. These maximum recommended dosages are slightly higher than the dosages written on the product container, but these dosages are very safe and well below the toxic dosage for acetaminophen. Ibuprofen Ibuprofen is an excellent, safe drug for pain control. In addition, it has potent antiinflammatory effects which are beneficial, especially in the treatment of injuries, arthritis, or tendonitis. It's best to take ibuprofen with food. Persons with ulcer disease or allergy to aspirin should notify their physician of this before taking ibuprofen. Take the medication exactly as prescribed. Don't take additional doses unless instructed to do so by your doctor. If you develop wheezing, shortness of breath, hives, faintness, stomach pain, vomiting, or dark black stools, return for re-evaluation at once. Given you 1 Raven now just to help you over the end of this kidney stone that you have passed. You will not need more narcotics after this. You do need to use the Tylenol Motrin and drink plenty of fluids. Please decrease your caffeine. FOLLOW-UP CARE: If you have been referred to a physician for follow-up care, call the physicians office for an appointment as you were instructed or within the next two days. If you experience worsening or a significant change in your symptoms, notify the physician immediately or return to the Emergency Department at any time for re-evaluation. Forms: Elevated Blood Pressure Referrals: JOSE R MENDEZ [NO LOCAL MD] - Follow up as needed [facility] [Provider Group] - Follow up as needed [facility] [Provider Group] - Follow up as needed [facility] [Provider Group] - Follow up as needed [facility] [Provider Group] - [facility] - Follow up as needed KAREN DUMONT MD [NO LOCAL MD] - Follow up in 3-5 days
== END 2020-08-13 21:27 | disposition home or self-care (01) ==
LOC: ER 13:24
DX: R10.9 Unspecified abdominal pain (principal); R11.2 Nausea with vomiting, unspecified; R31.9 Hematuria, unspecified; N28.82 Megaloureter; J45.909 Unspecified asthma, uncomplicated; Z87.442 Personal history of urinary calculi; Z88.0 Allergy status to penicillin
CPT/HCPCS: 99285; 96361; 96374; 36415; 85025; 80053; 81001; 76770; J1885; J7030

== ENCOUNTER 2020-08-16 12:58 | Emergency (ER) | payer SELFPAY ==
[2020-08-16 13:05] VITALS: BP 135/83
[2020-08-16] MEDS ORDERED: HYDROCODONE/ACETAMINOPHEN 5-325 MG TABLET PO ONE (13:21)
[2020-08-16] MEDS ORDERED: LIDOCAINE 4%/TETRACAINE 0.5%/EPI 0.18% 5 ML TOPICAL SOLN TOP ONE (13:22)
--- NOTE | 2020-08-16 13:26 | ER Document Report ---
HPI - HPI Time Seen by Provider: 08/16/20 13:10 Notes: 24-year-old male presents to the emergency room today for evaluation of right index finger pain and swelling for the last 3 days. Noticed some white drainage to his cuticle this morning. Denies any trauma to finger. Has not tried any ove [id number] medications, reports pain is 3 out of 5, throbbing and constant. Eating and drinking without any issues. Denies any numbness or tingling to bilateral fingers. Denies fevers, chills, chest pain,palpitations, shortness of breath, dyspnea, nausea, vomiting, diarrhea, abdominal pain, hematuria,blurred vision, double vision, loss of vision, speech changes, LH, dizziness, syncope, headaches, wheezing, ST, URI, neck pain, weakness, bowel or bladder dysfunction, saddle anesthesia, numbness or tingling in bilateral upper or lower extremities equally, muscle paralysis, weakness in bilateral upper or lower extremities equally or rash. Past Medical History - General Information source: Patient - Social History Smoking Status: Unknown if Ever Smoked Family History: Reviewed & Not Pertinent Pulmonary Medical History: Reports: Hx Asthma Renal/ Medical History: Reports: Hx Kidney Stones. Denies: Hx Peritoneal Dialysis Psychiatric Medical History: Reports: Hx Depression Past Surgical History: Reports: Hx Orthopedic Surgery - R middle finger, Hx Tonsillectomy - Immunizations Immunizations up to date: Yes Hx Diphtheria, Pertussis, Tetanus Vaccination: Yes Vertical Provider Document - CONSTITUTIONAL Agree With Documented VS: Yes Exam Limitations: No Limitations General Appearance: WD/WN Notes: MEDICATIONS: I agree with the patient medications as charted by the RN. ALLERGIES: I agree with the allergies as charted by the RN. PAST MEDICAL HISTORY/PAST SURGICAL HISTORY: Reviewed and agree as charted by RN. SOCIAL HISTORY: Reviewed and agree as charted by RN. FAMILY HISTORY: No significant familial comorbid conditions directly related to patient complaint EXAM: Reviewed vital signs as charted by RN. PHYSICAL EXAMINATION:reviewed vital signs by RN GENERAL: Well-appearing, well-nourished and in no acute distress. HEAD: Atraumatic, normocephalic. EYES: Pupils equal round and reactive to light, extraocular movements intact, s clera anicteric, conjunctiva are normal. ENT: Nares patent, oropharynx clear without exudates. Moist mucous membranes. NECK: Normal range of motion, supple without lymphadenopathy LUNGS: Breath sounds clear to auscultation bilaterally and equal. No wheezes rales or rhonchi. HEART: Regular rate and rhythm without murmurs ABDOMEN: Soft, nontender, nondistended abdomen. No guarding, no rebound. No masses appreciated. Musculoskeletal: Normal range of motion, no pitting or edema. No cyanosis. NEUROLOGICAL: Cranial nerves grossly intact. Normal speech, normal gait. Normal sensory, motor exams PSYCH: Normal mood, normal affect. SKIN: Warm, Dry, normal turgor, no rashes or lesions noted. Right second cuticle with erythema induration with fluctuance. No surrounding erythema. Gri ps +2 bilaterally equally. Radial pulses +2 bilaterally equally. Cap refill less than 3 seconds. - INFECTION CONTROL TRAVEL OUTSIDE OF THE [place] IN LAST 30 DAYS: No Course - Re-evaluation Re-evalutation: 08/16/20 13:28 Febrile, slightly tachycardic with patient stating his pain is pretty high, in no distress. We did peri the paronychia, wound culture obtained. Patient given [place] 5 mg325 for his pain which he states is 5 out of 5. Will start patient on outpatient antibiotic therapy due to patient having severe pain post incision, wound culture pending. Advised to alternate between Tylenol and ibuprofen for pain control. After performing a Medical Screening Examination, I estimate there is LOW risk for OPEN FRACTURE, COMPARTMENT SYNDROME, TENDON RUPTURE, ACUTE NEUROVASCULAR INJURY, or RETAINED FOREIGN BODY, thus I consider the discharge disposition reasonable. Also, there is no evidence or peritonitis, sepsis, or toxicity. I have reevaluated this patient multiple times and no significant life threatening changes are noted. The patient and I have discussed the diagnosis and risks, and we agree with discharging home with close follow-up with the understanding that symptoms and presentations can change. We also discussed returning to the Emergency Department immediately if new or worsening symptoms occur. We have discussed the symptoms which are most concerning (e.g., changing or worsening pain, fever, numbness, weakness, cool or painful digits) that necessitate immediate return. - Vital Signs Vital signs: Temp Pulse Resp BP Pulse Ox 98.1 F 121 H 14 135/83 H 98 08/16/20 13:03 08/16/20 13:03 08/16/20 13:03 08/16/20 13:03 08/16/20 13:03 - Laboratory Results Critical Laboratory Results Reviewed: No Critical Results - Radiology Results Critical Radiology Results Reviewed: No Critical Results Procedures - Incision and Drainage Right 2nd digit Time completed: 13:22 - Paronychia Type: Simple Blade size: 11 Incision Method: Incision made by scalpel Amount/type of drainage: Purulent drainage 1mL Notes: 08/16/20 13:22 Will consent given by patient for paronychia incision and drainage. Site cleaned with Shur-Clens. Discussed pros and cons of anesthetic, opted for not using anesthetic to do very quick lanced with 11 blade of the second right phalange cuticle. 1 mL of purulent drainage expressed. Wound culture obtained. Patient tolerated procedure without incident. Discharge - Discharge Clinical Impression: Paronychia Condition: Stable Disposition: HOME, SELF-CARE Instructions: Post Incision and Drainage Additional Instructions: Take antibiotics as directed with food every 6 hours. Soak finger in lukewarm water several times a day. Monitor for any signs of infection such as redness, swelling, drainage. You can alternate between Tylenol and ibuprofen for pain control. Follow-up with your primary care provider within the next 24 to 48 hours. We will call you with the results of your wound culture. Return immediately for any new or worsening symptoms. Follow up with primary care provider, call tomorrow to make followup appointment. Prescriptions: Clindamycin HCl 300 mg PO Q6H #28 capsule Referrals: CANDACE HONG MD [COMMUNITY BASED STAFF] - Follow up as needed
== END 2020-08-16 13:45 | disposition home or self-care (01) ==
LOC: ER 12:58
DX: L03.011 Cellulitis of right finger (principal); M79.644 Pain in right finger(s); Z87.442 Personal history of urinary calculi
CPT/HCPCS: 99283; 87070; 87205; 87077; 10060; J3490; 87186

== ENCOUNTER 2020-08-17 16:45 | Emergency (ER) | payer SELFPAY ==
[2020-08-17] MEDS ORDERED: HYDROCODONE/ACETAMINOPHEN 5-325 MG TABLET PO ONE (19:13)
--- NOTE | 2020-08-17 19:18 | ER Document Report ---
ED Hand/Wrist Injury - General Chief Complaint: Hand Injury Stated Complaint: HAND PAIN Time Seen by Provider: 08/17/20 19:03 Mode of Arrival: Ambulatory TRAVEL OUTSIDE OF THE [place] IN LAST 30 DAYS: No - HPI Injury to: Small finger Notes: Patient states that he tripped and fell injuring his right fifth finger. The patient states that the finger pain is constant, moderate. He states that the finger is deformed. He denies any numbness, tingling, weakness. No chest pain or shortness of breath. No abdominal pain. No nausea, vomiting, diarrhea. No rash. Pain is constant, moderate, worse with movement, better with rest. No other injuries or complaints. - Related Data Allergies/Adverse Reactions: amoxicillin [Amoxicillin] Allergy (Unknown, Verified 08/05/20 18:44) Penicillins Allergy (Verified 08/05/20 18:44) Past Medical History - Social History Smoking Status: Never Smoker Frequency of alcohol use: None Drug Abuse: None Family History: Reviewed & Not Pertinent Pulmonary Medical History: Reports: Hx Asthma Renal/ Medical History: Reports: Hx Kidney Stones. Denies: Hx Peritoneal Dialysis Psychiatric Medical History: Reports: Hx Depression Past Surgical History: Reports: Hx Orthopedic Surgery - R middle finger, Hx Tonsillectomy - Immunizations Immunizations up to date: Yes Hx Diphtheria, Pertussis, Tetanus Vaccination: Yes Review of Systems - Review of Systems -: Yes All other systems reviewed and negative Physical Exam - Vital signs Vitals: Temp Pulse Resp BP Pulse Ox 98.2 F 97 18 130/90 H 98 08/17/20 17:40 08/17/20 17:40 08/17/20 17:40 08/17/20 17:40 08/17/20 17:40 - Notes Notes: GENERAL: alert, cooperative, nontoxic, no distress. HEAD: normocephalic, atraumatic EYES: conjunctiva pink without discharge, no external redness or swelling. EARS: no external swelling, no external redness NOSE: atraumatic, no external swelling MOUTH/THROAT: mucous membranes moist and pink NECK: soft, supple, full range of motion, no meningismus. CHEST: no distress, lungs clear and equal throughout. No wheezing, rales, rhonchi. CARDIAC: regular rate and rhythm, no murmur EXTREMITIES: Tenderness to palpation to the right fifth finger with ulnar deformity of the finger after in CP joint. No redness. Normal cap refill and sensation. NEURO: alert and oriented 3, no focal deficits, full range of motion of all extremities. PYSCH: appropriate mood, affect. Patient is cooperative. SKIN: pink, warm, dry, no rash. Course - Re-evaluation Re-evalutation: 08/17/20 20:50 Patient resting comfortably at this time. I have gone over the results with the patient. Finger splint has been applied. Questions have been answered. Will discharge home. Patient here with complaints of right finger pain. He states he was cleaning out his mother's room when he tripped and fell and injured his right fifth finger. When he arrived his right finger was noted to be deformed ulnarly. Finger was reduced in triage and janelle tape. X-ray was performed showing normal alignment with no fracture. The patient was then placed in a aluminum finger splint. Patient be discharged home with instructions for care. Instructions rest, ice, elevate. Follow-up with orthopedics at the next available appointment. Follow-up sooner for worsening pain, fever, numbness, tingling, weakness, any further concerns. The patient's emergency department workup and current diagnosis were explained to the patient and or family. Follow-up instructions were provided. Medications if prescribed were discussed. Instructions for when to return to the emergency department including specific worrisome symptoms were discussed with the patient and/or family. - Vital Signs Vital signs: Temp Pulse Resp BP Pulse Ox 98.2 F 97 18 130/90 H 98 08/17/20 17:40 08/17/20 17:40 08/17/20 17:40 08/17/20 17:40 08/17/20 17:40 - Laboratory Results Critical Laboratory Results Reviewed: No Critical Results - Radiology Results Critical Radiology Results Reviewed: No Critical Results Procedures - Joint Reduction/Fracture Care Right Finger 5th digit Consent obtained: Yes Conscious sedation: No Pre-procedure NV exam: Yes Fracture: Closed Manipulation comment: Are pulled into appropriate alignment and janelle taped to fourth finger Post-procedure NV exam: Yes Post-reduction x-ray: Joint reduced Reduction attempts: 1 Complications: No Discharge - Discharge Clinical Impression: Finger dislocation Qualifiers: Encounter type: initial encounter Qualified Code(s): S63.259A - Unspecified dislocation of unspecified finger, initial encounter Condition: Stable Disposition: HOME, SELF-CARE Instructions: Finger Dislocation ([facility]) Additional Instructions: Wear splint as needed for comfort. Apply ice to sore area. Take medications as prescribed. Follow-up with orthopedics at the next available appointment. Follow-up sooner for worsening pain, fever, redness, numbness, tingling, weakness, any further concerns. Prescriptions: Diclofenac Sodium [Sandraaren 50 Mg Tablet.] 50 mg PO BID #20 tablet. Referrals: ANGEL EVERETT DO [ACTIVE STAFF] - Follow up as needed
--- NOTE | 2020-08-17 19:35 | RADIOLOGY REPORT (SQ) ---
EXAM DESCRIPTION: HAND RIGHT 3 VIEWS IMAGES COMPLETED DATE/TIME: 08/17/2020 7:25 pm REASON FOR STUDY: right 5th finger reduction COMPARISON: 2011 EXAM PARAMETERS: NUMBER OF VIEWS: Three views. TECHNIQUE: AP, lateral and oblique radiographic images acquired of the right hand. LIMITATIONS: None. FINDINGS: MINERALIZATION: Normal. BONES: No acute fracture or dislocation. No worrisome bone lesions. JOINTS: No effusions. SOFT TISSUES: No soft tissue swelling. No foreign body. OTHER: The 3rd and 4th digits appear to be taped together. IMPRESSION: No acute osseous finding. Normal alignment. TECHNICAL DOCUMENTATION: JOB ID: [id number] 2010 [employer]- All Rights Reserved Reading location - IP/workstation name: [email or web address]
[2020-08-17 21:05] VITALS: BP 127/87
== END 2020-08-17 21:00 | disposition home or self-care (01) ==
LOC: ER 16:45
DX: S63.256A Unspecified dislocation of right little finger, initial encounter (principal); W19.XXXA Unspecified fall, initial encounter; Y93.E9 Activity, other interior property and clothing maintenance; Z88.0 Allergy status to penicillin; J45.909 Unspecified asthma, uncomplicated
CPT/HCPCS: 99283

== ENCOUNTER 2020-08-30 15:34 | Emergency (ER) | payer SELFPAY ==
[2020-08-30] MEDS ORDERED: ONDANSETRON 4 MG TAB.RAPDIS PO ONE ×2 (16:10→18:47)
[2020-08-30] MEDS ORDERED: KETOROLAC TROMETHAMINE INJ/PF 30 MG/1 ML SDV IM ONE (16:10)
--- NOTE | 2020-08-30 16:12 | ER Document Report ---
ED Medical Screen (RME) - General Chief Complaint: Flank Pain Stated Complaint: FLANK PAIN Time Seen by Provider: 08/30/20 16:07 Mode of Arrival: Ambulatory Information source: Patient TRAVEL OUTSIDE OF THE [place] IN LAST 30 DAYS: No - HPI Patient complains to provider of: Right flank pain Notes: 08/30/20 16:11 Patient with complaints of right flank pain. The patient has a history of kidney stones. He states this feels like his previous kidney stones. He has nausea, but denies any vomiting or diarrhea. No dysuria or hematuria. Exam: Patient appears to be uncomfortable, nontoxic appearing. Lungs clear and equal throughout. Mild tachycardia. Mild right-sided flank tenderness. An initial examination was made on the patient as part of the triage process, and it was determined a more comprehensive evaluation was necessary. Initial orders were placed and patient was transferred to another provider in the ED who assumed care and finished evaluation and plan. - Related Data Allergies/Adverse Reactions: amoxicillin [Amoxicillin] Allergy (Unknown, Verified 08/05/20 18:44) Penicillins Allergy (Verified 08/05/20 18:44) Past Medical History - Social History Chew tobacco use (# tins/day): No Frequency of alcohol use: Rare Drug Abuse: None Pulmonary Medical History: Reports: Hx Asthma Renal/ Medical History: Reports: Hx Kidney Stones. Denies: Hx Peritoneal Dialysis Psychiatric Medical History: Reports: Hx Depression Past Surgical History: Reports: Hx Orthopedic Surgery - R middle finger, Hx Tonsillectomy - Immunizations Immunizations up to date: Yes Hx Diphtheria, Pertussis, Tetanus Vaccination: Yes Physical Exam - Vital signs Vitals: Temp Pulse Resp BP Pulse Ox 98.8 F 112 H 20 137/98 H 99 08/30/20 15:43 08/30/20 15:43 08/30/20 15:43 08/30/20 15:43 08/30/20 15:43 Course - Vital Signs Vital signs: Temp Pulse Resp BP Pulse Ox 98.8 F 112 H 20 137/98 H 99 08/30/20 15:43 08/30/20 15:43 08/30/20 15:43 08/30/20 15:43 08/30/20 15:43
[2020-08-30 16:45] LABS: ABSOLUTE BASOPHILS # (AUTO) 0.1 10^3/uL (0.0-0.2); ABSOLUTE EOSINOPHILS # (AUTO) 0.2 10^3/uL (0.0-0.6); ABSOLUTE LYMPHOCYTES (AUTO) 2.3 10^3/uL (0.5-4.7); ABSOLUTE MONOCYTES (AUTO) 1.1 10^3/uL (0.1-1.4); ABSOLUTE NEUT (AUTO) 6.5 10^3/uL (1.7-8.2); BASOPHILS % (AUTO) 0.6 % (0-2); EOSINOPHILS % (AUTO) 1.8 % (0-6); HEMATOCRIT 47.5 % (37.9-51.0); HEMOGLOBIN 16.2 g/dL (13.5-17.0); LYMPHOCYTES % (AUTO) 22.4 % (13-45); MEAN CORPUSCULAR HEMOGLOBIN 29.4 pg (27.0-33.4); MEAN CORPUSCULAR HGB CONC 34.1 g/dL (32.0-36.0); MEAN CORPUSCULAR VOLUME 86 fl (80-97); MONOCYTES % (AUTO) 11.1 % (3-13); PLATELET COUNT 296 10^3/uL (150-450); RED CELL DISTRIBUTION WIDTH 13.4 % (11.5-14.0); SEGMENTED NEUTROPHILS % (AUTO) 64.1 % (42-78); TOTAL CELLS COUNTED % (AUTO) 100 %; WHITE BLOOD COUNT 10.2 10^3/uL (4.0-10.5)
[2020-08-30 16:47] LABS: APPEARANCE,URINE SLIGHTLY-CLOUDY; BILIRUBIN,URINE NEGATIVE (NEGATIVE); COLOR,URINE YELLOW; GLUCOSE, URINE NEGATIVE (NEGATIVE); KETONES,URINE NEGATIVE (NEGATIVE); LEUKOCYTE ESTERASE,URINE NEGATIVE (NEGATIVE); NITRITE,URINE NEGATIVE (NEGATIVE); PROTEIN,URINE 30 mg/dL (NEGATIVE); URINE SPECIFIC GRAVITY 1.017; UROBILINOGEN,URINE NEGATIVE mg/dL (<2.0)
[2020-08-30 17:07] LABS: ALBUMIN 4.7 g/dL (3.5-5.0); ALKALINE PHOSPHATASE 111 U/L (38-126); ANION GAP 10 (5-19); ASPARTATE AMINO TRANSFERASE 33 U/L (17-59); BILIRUBIN,DIRECT 0.2 mg/dL (0.0-0.4); BILIRUBIN,TOTAL 0.6 mg/dL (0.2-1.3); BLOOD UREA NITROGEN 13 mg/dL (7-20); CALCIUM 9.7 mg/dL (8.4-10.2); CARBON DIOXIDE 27 mmol/L (22-30); CHLORIDE 102 mmol/L (98-107); GLUCOSE 93 mg/dL (75-110); POTASSIUM 4.3 mmol/L (3.6-5.0); TOTAL PROTEIN 7.8 g/dL (6.3-8.2)
[2020-08-30] MEDS ORDERED: OXYCODONE-ACETAMINOPHEN 5-325 MG TABLET PO ONE (18:47)
[2020-08-30] MEDS ORDERED: NORMAL SALINE 1000 ML 1,000 ML IV ONE (18:48)
--- NOTE | 2020-08-30 18:49 | ER Document Report ---
ED GI/ - General Chief Complaint: Flank Pain Stated Complaint: FLANK PAIN Time Seen by Provider: 08/30/20 16:07 Primary Care Provider: KAREN DUMONT MD [NO LOCAL MD] - Follow up in 3-5 days Mode of Arrival: Ambulatory Information source: Patient Notes: Patient presents complaining of right flank pain with hematuria and nausea today. Patient denies any fever, vomiting or diarrhea. Patient states he has a long history of kidney stones and suspects the same today although has never seen a urologist. TRAVEL OUTSIDE OF THE [place] IN LAST 30 DAYS: No - HPI Patient complains to provider of: Abdominal pain, Flank pain. No: Diarrhea, Vomiting Onset: This morning Timing/Duration: Worse Quality of pain: Sharp Pain Level: 5 Location: RLQ, Right flank Associated symptoms: Nausea. denies: Dysuria, Fever, Urinary hesitancy, Urinary frequency, Urinary retention, Urinary urgency, Vomiting Exacerbated by: Denies Relieved by: Denies Similar symptoms previously: Yes Recently seen / treated by doctor: No - Related Data Allergies/Adverse Reactions: amoxicillin [Amoxicillin] Allergy (Unknown, Verified 08/05/20 18:44) Penicillins Allergy (Verified 08/05/20 18:44) Past Medical History - General Information source: Patient - Social History Smoking Status: Never Smoker Chew tobacco use (# tins/day): No Frequency of alcohol use: Rare Drug Abuse: None Occupation: none Lives with: Family Family History: Reviewed & Not Pertinent Pulmonary Medical History: Reports: Hx Asthma Renal/ Medical History: Reports: Hx Kidney Stones. Denies: Hx Peritoneal Dialysis Psychiatric Medical History: Reports: Hx Depression Past Surgical History: Reports: Hx Orthopedic Surgery - R middle finger, Hx Tonsillectomy - Immunizations Immunizations up to date: Yes Hx Diphtheria, Pertussis, Tetanus Vaccination: Yes Review of Systems - Review of Systems Constitutional: No symptoms reported. denies: Fever, Recent illness EENT: No symptoms reported Cardiovascular: No symptoms reported Respiratory: No symptoms reported Gastrointestinal: Abdominal pain, Nausea. denies: Diarrhea, Vomiting Genitourinary: Flank pain. denies: Dysuria Male Genitourinary: No symptoms reported Musculoskeletal: Back pain Skin: No symptoms reported Hematologic/Lymphatic: No symptoms reported Neurological/Psychological: No symptoms reported Physical Exam - Vital signs Vitals: Temp Pulse Resp BP Pulse Ox 98.8 F 112 H 20 137/98 H 99 08/30/20 15:43 08/30/20 15:43 08/30/20 15:43 08/30/20 15:43 08/30/20 15:43 - General General appearance: Appears well, Alert In distress: Mild - HEENT Head: Normocephalic, Atraumatic Eyes: Normal Conjunctiva: Normal Nasal: Normal Mouth/Lips: Normal Mucous membranes: Normal Neck: Normal, Supple. No: Lymphadenopathy - Respiratory Respiratory status: No respiratory distress Chest status: Nontender Breath sounds: Normal Chest palpation: Normal - Cardiovascular Rhythm: Tachycardia Heart sounds: S1 appreciated, S2 appreciated - Abdominal Inspection: Normal Distension: No distension Bowel sounds: Normal Tenderness: Tender - Right lower quadrant Organomegaly: No organomegaly - Back Back: CVA tenderness - Right - Extremities General upper extremity: Normal inspection, Normal ROM General lower extremity: Normal inspection, Normal ROM - Neurological Neuro grossly intact: Yes Cognition: Normal Sally Coma Scale Eye Opening: Spontaneous [place] Coma Scale Verbal: Oriented Sally Coma Scale Motor: Obeys Commands [place] Coma Scale Total: 15 - Psychological Associated symptoms: Normal affect, Normal mood - Skin Skin Temperature: Warm Skin Moisture: Dry Skin Color: Normal Course - Re-evaluation Re-evalutation: 08/30/20 19:31 Patient with a 4 mm proximal ureteral stone on the right. Patient without any fever or leukocytosis. Patient without any UTI or abnormal renal function. Patient educated on importance of follow-up with urology for definitive management of this ureteral stone. Discussed worsening signs or symptoms that patient should return immediately for. We will plan for discharge at this time, good return precautions discussed with patient. - Vital Signs Vital signs: Temp Pulse Resp BP Pulse Ox 97.8 F 73 18 119/79 100 08/30/20 19:27 08/30/20 19:27 08/30/20 19:27 08/30/20 19:27 08/30/20 19:27 - Laboratory Results Result Diagrams: 08/30/20 16:25 08/30/20 16:25 Laboratory Results Interpreted: 08/30/20 08/30/20 16:25 16:25 ALT 56 H Urine Protein 30 H Urine Blood LARGE H 08/30/20 19:30 Labs- All tests 24 hr 08/30/20 08/30/20 08/30/20 16:25 16:25 16:25 WBC 10.2 RBC 5.50 Hgb 16.2 Hct 47.5 MCV 86 MCH 29.4 MCHC 34.1 RDW 13.4 Plt Count 296 Lymph % (Auto) 22.4 [place] % (Auto) 11.1 Eos % (Auto) 1.8 Baso % (Auto) 0.6 Absolute Neuts (auto) 6.5 Absolute Lymphs (auto) 2.3 Absolute Monos (auto) 1.1 Absolute Eos (auto) 0.2 Absolute Basos (auto) 0.1 Seg Neutrophils % 64.1 Sodium 138.9 Potassium 4.3 Chloride 102 Carbon Dioxide 27 Anion Gap 10 BUN 13 Creatinine 1.03 Est GFR ( Amer) > 60 Est GFR (MDRD) Non-Af > 60 Glucose 93 Calcium 9.7 Total Bilirubin 0.6 Direct Bilirubin 0.2 Neonat Total Bilirubin Not Reportable Neonat Direct Bilirubin Not Reportable Neonat Indirect Bili Not Reportable AST 33 ALT 56 H Alkaline Phosphatase 111 Total Protein 7.8 Albumin 4.7 Lipase 209.1 Urine Color YELLOW Urine Appearance SLIGHTLY-CLOUDY Urine pH 6.0 Ur Specific [place] 1.017 Urine Protein 30 H Urine Glucose (UA) NEGATIVE Urine Ketones NEGATIVE Urine Blood LARGE H Urine Nitrite NEGATIVE Urine Bilirubin NEGATIVE Urine Urobilinogen NEGATIVE Ur Leukocyte Esterase NEGATIVE Urine RBC (Auto) >182 Squamous Epi Cells Auto 2 Urine Mucus (Auto) FEW Urine Ascorbic Acid NEGATIVE Critical Laboratory Results Reviewed: No Critical Results - Radiology Results Critical Radiology Results Reviewed: No Critical Results Discharge - Discharge Clinical Impression: Ureteral calculus, right Condition: Stable Disposition: HOME, SELF-CARE Additional Instructions: Return immediately for any new or worsening symptoms: Fever, vomiting, worsening pain any new or concerning symptoms Followup with your primary care provider, call tomorrow to make a followup appointment Follow-up with a urologist, call tomorrow for an appointment KIDNEY STONE: You are passing or have passed a kidney stone. These stones are usually due to increased calcium or uric acid concentrations in your urine. Stones within the kidney itself are not painful. The pain occurs as the stone leaves the kidney to pass down the long tube, called the ureter, leading to the bladder. If the stone is small, it will usually pass by itself. Most patients can pass the stone at home. You will usually receive medications for pain, nausea or vomiting, and sometimes a medication to assist in passing the kidney stone. However, if the pain is very severe or if vomiting prevents you from taking oral pain medications, you may need to return for further treatment. Drink three or four quarts of fluids per day. You will be given pain medication (if needed) and urine strainers. Strain all your urine to see if the stone passes. If your doctor has asked you to bring the stone in for analysis, return with the stone once it has passed. Return if pain or vomiting become severe, if you develop a high fever, if you are unable to pass your urine, or if other unusual symptoms occur. TORADOL INJECTION: You have been given an injection of ketorolac tromethamine (Toradol). This is an excellent, safe drug for pain control. It also has potent antii nflammatory action. You should have significant pain relief within about one hour. Toradol is not addicting and is non-sedating. It does not interfere with driving or work. Call or return if you develop itching, hives, shortness of breath, or rash. ANTINAUSEA MEDICATION: You have been given a medication to suppress nausea and vomiting. This type of medication can be given as a shot, pill, or suppository. It will usually last for many hours. Pills and shots usually last six to eight hours, suppositories last about 12 hours. For the typical illness, only one or two doses of the medication may be necessary. Mild lightheadedness may occur. This type of medicine can cause drowsiness. Do not drive or operate dangerous machinery while under its influence. Do not mix with alcohol. See your doctor at once if you have muscle spasms or tightness, or uncontrollable motions (particularly of the neck, mouth, or jaw). Persistent vomiting or severe lightheadedness should also be evaluated by the physician. ORAL NARCOTIC MEDICATION: You have been given a prescription for pain control. This medication is a narcotic. It's best taken with food, as nausea can result if taken on an empty stomach. Don't operate machinery or drive within six hours of taking this medication. Do not combine this medicine with alcohol, or with any medication which can cause sedation (such as cold tablets or sleeping pills) unless you get permission from the physician. Narcotics tend to cause constipation. If possible, drink plenty of fluids and eat a diet high in fiber and fruits. Please be aware that prescription narcotics also have the potential for abu se. People become addicted to these medications because of the general sense of wellbeing that they induce. This feeling along with a significant reduction in tension, anxiety, and aggression provides a stimulating seductive quality to these drugs. Once your pain is under control, we encourage you to discard your unused narcotics. FLOMAX (tamsulosin): Flomax is a medicine that shrinks the prostate gland. It helps relieve symptoms of benign prostatic hypertrophy, such as frequent urination, weak stream, and inadequate emptying. It has been shown to dilate the ureter (tube leading from the kidney to the bladder) and help in passing kidney stones Flomax usually causes no side effects. You may notice slight tiredness and dizziness for a few days. Some patients develop nasal congestion. Rarely, impotence can occur. If the symptoms are bothersome and don't improve with co ntinued use, call your doctor. Contact your doctor or return if you have fainting spells, severe weakness or dizziness, shortness of breath, or rash. FOLLOW-UP CARE: If you have been referred to a physician for follow-up care, call the physicians office for an appointment as you were instructed or within the next two days. If you experience worsening or a significant change in your symptoms, notify the physician immediately or return to the Emergency Department at any time for re-evaluation. Prescriptions: Tamsulosin HCl [Flomax 0.4 mg Cap.sr] 0.4 mg PO DAILY #7 cap.sr.24h Hydrocodone/Acetaminophen [[place] 5-325 mg Tablet] 1 tab PO Q6 PRN #15 tablet PRN Reason: Ondansetron [Zofran Odt 4 mg Tablet] 1 tab PO Q6H #15 tab.rapdis Referrals: KAREN DUMONT MD [NO LOCAL MD] - Follow up in 3-5 days
--- NOTE | 2020-08-30 19:24 | RADIOLOGY REPORT (SQ) ---
EXAM DESCRIPTION: CT ABD/PELVIS NO ORAL OR IV IMAGES COMPLETED DATE/TIME: 08/30/2020 7:08 pm REASON FOR STUDY: r flank pain, hematuria COMPARISON: 08/05/2020 TECHNIQUE: CT scan of the abdomen and pelvis performed without intravenous or oral contrast. Images reviewed with lung, soft tissue, and bone windows. Reconstructed coronal and sagittal MPR images revi ewed. All images stored on PACS. All CT scanners at this facility use dose modulation, iterative reconstruction, and/or weight based d osing when appropriate to reduce radiation dose to as low as reasonably achievable (ALARA). [facility]: Dose Right [facility]: CareDose [facility]: Dose Right [facility]: Teradose 4D [facility]: Smart [employer] RADIATION DOSE: CT Rad equipment meets quality standard of care and radiation dose reduction techniq ues were employed. CTDIvol: 10.2 mGy. DLP: 578 mGy-cm.mGy. LIMITATIONS: None. FINDINGS: LOWER CHEST: No significant findings. No nodules or infiltrates. NON-CONTRASTED LIVER, SPLEEN, ADRENALS: Evaluation limited by lack of IV contrast. No identified sign ificant masses. PANCREAS: No masses. No peripancreatic inflammatory changes. GALLBLADDER: No identified stones by CT criteria. No inflammatory changes to suggest cholecystitis. RIGHT KIDNEY AND URETER: No suspicious masses. Assessment limited by lack of IV contrast. 4 mm calc ulus in the proximal right ureter. Right hydronephrosis. LEFT KIDNEY AND URETER: No suspicious masses. Assessment limited by lack of IV contrast. No signifi cant calcifications. No hydronephrosis or hydroureter. AORTA AND RETROPERITONEUM: No aneurysm. No retroperitoneal masses or adenopathy. BOWEL AND PERITONEAL CAVITY: No obvious masses or inflammatory changes. No free fluid. APPENDIX: Normal. PELVIS, BLADDER, AND ABDOMINAL WALL:No abnormal masses. No free fluid. Bladder normal. BONES: No significant findings. OTHER: No other significant finding. IMPRESSION: Right hydronephrosis secondary to a 4 mm calculus in the proximal right ureter. This li betsey represents the same stone seen on the study [facility]/05/2020 at [facility] COMMENT: Quality ID # [id number]: Final reports with documentation of one or more dose reduction techniques (e.g., Automated exposure control, adjustment of the mA and/or kV according to patient size, use of iterative reconstruction technique) TECHNICAL DOCUMENTATION: JOB ID: [id number] 2010 [employer]- All Rights Reserved Reading location - IP/workstation name: [email or web address]
[2020-08-30 19:30] VITALS: BP 119/79
[2020-08-30] MEDS ORDERED: TAMSULOSIN HCL 0.4 MG CAP.SR.24H PO ONE (19:30)
== END 2020-08-30 19:50 | disposition home or self-care (01) ==
LOC: ER 15:34
DX: N20.1 Calculus of ureter (principal); R10.9 Unspecified abdominal pain; R11.0 Nausea; Z87.442 Personal history of urinary calculi; Z88.0 Allergy status to penicillin
CPT/HCPCS: 99285; 96372; 36415; 83690; 85025; 80053; 81001; 74176; S0119; J1885; J7030

== ENCOUNTER 2020-09-03 14:32 | Emergency (ER) | payer SELFPAY ==
[2020-09-03] MEDS ORDERED: KETOROLAC TROMETHAMINE INJ/PF 30 MG/1 ML SDV IV ONE (14:47)
[2020-09-03] MEDS ORDERED: ONDANSETRON HCL INJ/PF 4 MG/2 ML SDV IV ONE (14:48)
--- NOTE | 2020-09-03 14:50 | ER Document Report ---
ED Medical Screen (RME) - General Chief Complaint: Abdominal Pain Stated Complaint: ABDOMINAL/BACK PAIN Time Seen by Provider: 09/03/20 14:46 Notes: HPI: 24-year-old male presenting again for right flank pain with nausea vomiting. States he was seen at [place] had a right 4 mm kidney stone. Patient was seen again twice in August for flank pain has not yet been able to get into urology. States when he was here 5 days ago they did another CT image and the stone had not moved, now back again because of continued pain and nausea vomiting. No fever. PHYSICAL EXAMINATION: Patient appears moderately uncomfortable. Mild right CVA tenderness. I have greeted and performed a rapid initial assessment of this patient. A comprehensive ED assessment and evaluation of the patient, analysis of test results and completion of medical decision making process will be conducted by an additional ED providers. Please note that clinical decision making for this patient was made during the 2019 pandemic of novel coronavirus which caused a s ignificant strain on the healthcare system including at this particular facility. Criteria for admission discharge and level of care decisions as well as treatment decisions have necessarily changed TRAVEL OUTSIDE OF THE [place] IN LAST 30 DAYS: No - Related Data Allergies/Adverse Reactions: amoxicillin [Amoxicillin] Allergy (Unknown, Verified 08/05/20 18:44) Penicillins Allergy (Verified 08/05/20 18:44) Past Medical History - Social History Frequency of alcohol use: None Drug Abuse: None Pulmonary Medical History: Reports: Hx Asthma Renal/ Medical History: Reports: Hx Kidney Stones. Denies: Hx Peritoneal Dialysis Psychiatric Medical History: Reports: Hx Depression Past Surgical History: Reports: Hx Orthopedic Surgery - R middle finger, Hx Tonsillectomy - Immunizations Immunizations up to date: Yes Hx Diphtheria, Pertussis, Tetanus Vaccination: Yes Physical Exam - Vital signs Vitals: Temp Pulse Resp BP Pulse Ox 98.8 F 108 H 20 155/84 H 100 09/03/20 14:37 09/03/20 14:37 09/03/20 14:37 09/03/20 14:37 09/03/20 14:37 Course - Vital Signs Vital signs: Temp Pulse Resp BP Pulse Ox 98.8 F 108 H 20 155/84 H 100 09/03/20 14:37 09/03/20 14:37 09/03/20 14:37 09/03/20 14:37 09/03/20 14:37
[2020-09-03 15:32] LABS: ABSOLUTE EOSINOPHILS # (AUTO) 0.1 10^3/uL (0.0-0.6); ABSOLUTE LYMPHOCYTES (AUTO) 1.1 10^3/uL (0.5-4.7); ABSOLUTE MONOCYTES (AUTO) 0.6 10^3/uL (0.1-1.4); ABSOLUTE NEUT (AUTO) 3.5 10^3/uL (1.7-8.2); BASOPHILS % (AUTO) 0.7 % (0-2); EOSINOPHILS % (AUTO) 1.4 % (0-6); HEMATOCRIT 45.8 % (37.9-51.0); HEMOGLOBIN 15.8 g/dL (13.5-17.0); LYMPHOCYTES % (AUTO) 20.9 % (13-45); MEAN CORPUSCULAR HEMOGLOBIN 29.6 pg (27.0-33.4); MEAN CORPUSCULAR HGB CONC 34.5 g/dL (32.0-36.0); MEAN CORPUSCULAR VOLUME 86 fl (80-97); PLATELET COUNT 252 10^3/uL (150-450); RED BLOOD COUNT 5.34 10^6/uL (4.35-5.55); RED CELL DISTRIBUTION WIDTH 13.1 % (11.5-14.0); TOTAL CELLS COUNTED % (AUTO) 100 %; WHITE BLOOD COUNT 5.3 10^3/uL (4.0-10.5)
[2020-09-03 15:39] LABS: APPEARANCE,URINE CLEAR; BILIRUBIN,URINE NEGATIVE (NEGATIVE); COLOR,URINE STRAW; GLUCOSE, URINE NEGATIVE (NEGATIVE); KETONES,URINE NEGATIVE (NEGATIVE); LEUKOCYTE ESTERASE,URINE NEGATIVE (NEGATIVE); NITRITE,URINE NEGATIVE (NEGATIVE); PROTEIN,URINE NEGATIVE (NEGATIVE); URINE SPECIFIC GRAVITY 1.009; UROBILINOGEN,URINE NEGATIVE mg/dL (<2.0)
[2020-09-03 15:44] LABS: ALBUMIN 4.7 g/dL (3.5-5.0); ALKALINE PHOSPHATASE 86 U/L (38-126); ANION GAP 7 (5-19); ASPARTATE AMINO TRANSFERASE 28 U/L (17-59); BILIRUBIN,DIRECT 0.2 mg/dL (0.0-0.4); BILIRUBIN,TOTAL 0.4 mg/dL (0.2-1.3); BLOOD UREA NITROGEN 10 mg/dL (7-20); CALCIUM 10.1 mg/dL (8.4-10.2); CARBON DIOXIDE 31 mmol/L (22-30); CHLORIDE 101 mmol/L (98-107); GLUCOSE 89 mg/dL (75-110); POTASSIUM 4.4 mmol/L (3.6-5.0); TOTAL PROTEIN 7.7 g/dL (6.3-8.2)
[2020-09-03] MEDS ORDERED: HYDROCODONE/ACETAMINOPHEN 5-325 MG TABLET PO ONE (17:16)
--- NOTE | 2020-09-03 17:19 | ER Document Report ---
ED GI/ - General Chief Complaint: Abdominal Pain Stated Complaint: ABDOMINAL/BACK PAIN Time Seen by Provider: 09/03/20 14:46 Primary Care Provider: ANTHONY ARAUJO MD [NO LOCAL MD] - Follow up in 3-5 days TRAVEL OUTSIDE OF THE [place] IN LAST 30 DAYS: No - HPI Notes: 09/03/20 17:16 Patient is a 24-year-old male with a past medical history of kidney stones who presents with right flank pain. Patient states that he has had this kidney stone since . He has been to the ER several times. It is a 4 mm stone. He states it has not passed yet he is having nausea and vomiting. Patient states pain radiates down to his right lower quadrant. He denies any dysuria. No fevers. He has been unable to see urology outpatient due to insurance reasons. Patient returned to the ER today because he was told to come back if the pain worsened. - Related Data Allergies/Adverse Reactions: amoxicillin [Amoxicillin] Allergy (Unknown, Verified 08/05/20 18:44) Penicillins Allergy (Verified 08/05/20 18:44) Past Medical History - General Information source: Patient - Social History Smoking Status: Never Smoker Frequency of alcohol use: None Drug Abuse: None Family History: Reviewed & Not Pertinent Pulmonary Medical History: Reports: Hx Asthma Renal/ Medical History: Reports: Hx Kidney Stones. Denies: Hx Peritoneal Dialysis Psychiatric Medical History: Reports: Hx Depression Past Surgical History: Reports: Hx Orthopedic Surgery - R middle finger, Hx Tonsillectomy - Immunizations Immunizations up to date: Yes Hx Diphtheria, Pertussis, Tetanus Vaccination: Yes Review of Systems - Review of Systems Notes: CONSTITUTIONAL: No fever, fatigue or weight loss. SKIN: No rash. HENT: No congestion, ear pain, or sore throat. EYES: No recent vision problems or eye pain. ENDOCRINE: No thyroid problems. No polyuria or polydipsia. CARDIOVASCULAR: No chest pain or edema. RESPIRATORY: No cough, shortness of breath, congestion, or wheezing. GASTROINTESTINAL: Positive for nausea and vomiting. GENITOURINARY: No dysuria. MUSCULOSKELETAL: No joint pain or swelling. Positive for right flank pain. LYMPHATIC: No swollen glands. NEUROLOGIC: No seizures. No headache, focal weakness or sensory changes. HEMATOLOGIC: No unusual bruising or bleeding. PSYCHIATRIC: No depression or anxiety. Physical Exam - Vital signs Vitals: Temp Pulse Resp BP Pulse Ox 98.8 F 108 H 20 155/84 H 100 09/03/20 14:37 09/03/20 14:37 09/03/20 14:37 09/03/20 14:37 09/03/20 14:37 - General General appearance: Appears well In distress: None Notes: VITAL SIGNS: Within normal limits. GENERAL: No acute distress, non-toxic appearance. HEAD: Normal with no signs of head trauma. EYES: Conjunctiva normal, no discharge. EARS: Hearing grossly intact. NECK: Normal range of motion, supple. CHEST: Clear breath sounds bilaterally. No wheezes, rales, or rhonchi. CARDIAC: Regular rate and rhythm. S1 and S2, without murmurs, gallops, or rubs. VASCULAR: No Edema. ABDOMEN: Normal and soft with no tenderness. Discomfort to palpation of right flank. MUSCULOSKELETAL: Good range of motion of all major joints. Extremities without clubbing, cyanosis or edema. NEUROLOGICAL: Alert and oriented x 3. No focal sensory or strength deficits. Speech normal. Follows commands appropriately. PSYCHIATRIC: Normal Affect, judgement and mood. SKIN: Normal appearance with no rashes or lesions. Course - Re-evaluation Re-evalutation: 09/03/20 23:[address] Eller from [facility]. Patient has been to the ER multiple times for this since August 05. He last had imaging on August 30 so I did not reimage him. Dr. Araujo was okay with this. He recommended that I discharge her with Toradol as that is better for stones. He also recommended another trial of Flomax. He states that patient will need to call the office first thing on Saturday for an appointment. He does not believe this is something that patient needs to have emergently done. He has no sign of infection. I discussed all this with the patient. He did request a couple more hydrocodone as he only has 1 left. I looked him up in the [employer] and he has had 2 prescriptions for this kidney stone already. I will give him a very small amount of hydrocodone to get him through Saturday when he needs to call the office. He is very agreeable to the plan. Patient was given strict return precautions. - Vital Signs Vital signs: Temp Pulse Resp BP Pulse Ox 98.4 F 70 16 130/69 H 100 09/03/20 18:46 09/03/20 18:46 09/03/20 18:46 09/03/20 18:46 09/03/20 18:46 - Laboratory Results Result Diagrams: 09/03/20 15:05 09/03/20 15:05 Laboratory Results Interpreted: 09/03/20 09/03/20 15:00 15:05 Carbon Dioxide 31 H Urine Blood MODERATE H Critical Laboratory Results Reviewed: No Critical Results - Radiology Results Critical Radiology Results Reviewed: No Critical Results Discharge - Discharge Clinical Impression: Right flank pain, Kidney stone Condition: Stable Disposition: HOME, SELF-CARE Instructions: Kidney Stone ([facility]) Additional Instructions: Please take the pain medications as prescribed. I will also start you on Flomax. Please make sure you are staying hydrated. Please call the urology office on Saturday for an appointment. Return to the ER for any fevers, vomiting, worsening symptoms. Prescriptions: Ketorolac Tromethamine [Toradol 10 mg Tablet] 10 mg PO Q8HP PRN 3 Days #9 tablet PRN Reason: Tamsulosin HCl [Flomax] 0.4 mg PO DAILY 3 Days #3 cap.er.24h Hydrocodone/Acetaminophen [[place] 5-325 mg Tablet] 1 tab PO Q8H PRN #5 tablet PRN Reason: Referrals: ANTHONY ARAUJO MD [NO LOCAL MD] - Follow up in 3-5 days
[2020-09-03 19:04] VITALS: BP 130/69
--- OUTSIDE RECORDS SUMMARY | 2020-09-06 10:31 | XMS REPORT ---
:1995 Author Organization [facility] Address [facility] [address] [place] [address] Care Team Providers Name Role Phone Bundle PA C Attending Clinician Unavailable Allergies, Adverse Reactions, Alerts This patient has no known allergies or adverse reactions. Medications This patient has no known medications. Problems This patient has no known problems. Procedures Procedure Date / Time Performed Performing Clinician Devic e OFFICE/OUTPATIENT VISIT, EST 2014-07-29 11:00:00 OFFICE/OUTPATIENT VISIT, EST 2014-07-13 16:15:00 DESTRUCT LESION, 1-14 2014-07-13 16:15:00 ASSAY THYROID STIM HORMONE 2014-05-21 09:15:00 OFFICE/OUTPATIENT VISIT, EST 2014-05-21 09:15:00 LIPID PANEL 2014-05-21 09:15:00 COMPREHEN METABOLIC PANEL 2014-05-21 09:15:00 ROUTINE VENIPUNCTURE 2014-05-21 09:15:00 Results Test Description Test Time Test Comments Text Results Atomic Results Result Comments CBC, No Differential Platelet 2014-05-21 09:51:00 Test Item Value Reference Range Comments Sendouts (test code = Sendouts) Sent to Reference Lab LIPID [id number] 09:51:00 Test Item Value Reference Range Comments CHD (test code = CHD) 41.67 DLDL (test code = DLDL) 71 MG/DL 100-130 TGL (test code = TGL) 53 MG/DL 30-200 CHOL (test code = CHOL) 120 MG/DL 140-200 HDL (test code = HDL) 50 MG/DL 32-96 [id number] 09:51:00 Test Item Value Reference Range Comments TSH (test code = TSH) 1.74 UIU/ML 0.50-5.80 CHEM [id number] 09:51:00 Test Item Value Reference Range Comments EGFR (test code = EGFR) 101.59 >60.00 CL (test code = CL) 101 MMOL/L 98-110 CO2 (test code = CO2) 25.6 MMOL/L 21.0-32.0 ION GAP (test code = ION GAP) 17 4-16 NA (test code = NA) 140 MMOL/L 135-145 K (test code = K) 3.9 MMOL/L 3.5-5.1 BUN (test code = BUN) 15 MG/DL 7-18 GLU (test code = GLU) 89 MG/DL 70-110 ALT (test code = ALT) 32 U/L 9-61 BUN/CREAT RATIO (test code = BUN/CREAT RATIO) 15 10 -14 GLOB (test code = GLOB) 3.3 1.9-4.5 EGFRAA (test code = EGFRAA) 123.13 >60.00 BILT (test code = BILT) 0.3 MG/DL 0.1-1.0 ALB (test code = ALB) 4.6 G/DL 3.2-4.7 CA (test code = CA) 9.8 MG/DL 8.5-10.1 CR (test code = CR) 1.0 MG/DL 0.4-1.3 AST (test code = AST) 32 U/L 9-37 ALK PHOS (test code = ALK PHOS) 85 U/L 50-136 TP (test code = TP) 7.9 G/DL 6.9-8.5 Assessments Condition Name Status Diagnosis Date Treating Clinici an Sinusitis - Acute (Unspecified) Active Warts - Viral (unspecified) Active Anxiety - Unspecified Active Asthma - Unspecified Active Allergic Rhinitis - Unspecified Active Exam - General Medical Active Acne - Other Active Encounters Start End Encounter Admission Attending Care Care Encounter Date/Time Date/Time Type Type Clinicians Facility Department ID 2014-07-29 2014-07-29 Outpatient Bundle LOGAN GLORY [facility] [id number] 11:00:00 11:00:00 Michelle Concha Formerly [facility] [id number] [facility] [id number] [address] 2014-07-13 2014-07-13 Outpatient Bundle LOGAN GLORY [place] [id number] 16:15:00 16:15:00 Michelle [facility] [id number] [facility] [id number] Center, [id number] 2014-05-21 2014-05-21 Outpatient Bundle LOGAN GLORY [place] [id number] 09:15:00 09:15:00 C, [facility] [id number] [facility] [id number] Center, [id number] [employer] Social History This patient has no known social history. Vital Signs This patient has no known vital signs.
== END 2020-09-03 18:46 | disposition home or self-care (01) ==
LOC: ER 14:32
DX: N20.0 Calculus of kidney (principal); R10.9 Unspecified abdominal pain; R11.2 Nausea with vomiting, unspecified; J45.909 Unspecified asthma, uncomplicated; Z88.0 Allergy status to penicillin
CPT/HCPCS: 99284; 96374; 96375; 36415; 87086; 85025; 80053; 81001; J1885; J2405

== ENCOUNTER 2020-09-05 14:19 | Emergency (ER) | payer SELFPAY ==
[2020-09-05] MEDS ORDERED: KETOROLAC TROMETHAMINE 60 MG/2 ML SDV IM ONE (14:59)
--- NOTE | 2020-09-05 15:03 | ER Document Report ---
ED Medical Screen (RME) - General Chief Complaint: Flank Pain Stated Complaint: FLANK PAIN Time Seen by Provider: 09/05/20 14:50 Mode of Arrival: Ambulatory Information source: Patient Notes: HPI; 24-year-old male past medical history significant for right-sided kidney stone. Patient has been seen in the emergency room multiple times since being diagnosed with kidney stone in July. Has not followed up with urology. States scheduled to follow-up with urology today but was unable to get a ride . States the pain is worse today. Also complained of subjective fever. Has not taken anything for his symptoms. PE: Alert and oriented x3. Lungs: Clear to auscultation without rales, rhonchi, wheezes. Heart: Regular rate and rhythm murmurs, rubs, gallops. Positive for right CVA tenderness I have greeted and performed a rapid initial assessment of this patient. A comprehensive ED assessment and evaluation of the patient, analysis of test results and completion of the medical decision making process will be conducted by additional ED providers. I have specifically instructed the patient or family members with the patient to immediately return to any nursing staff should anything change in the patient's condition or with their chief complaint. TRAVEL OUTSIDE OF THE [place] IN LAST 30 DAYS: No - Related Data Allergies/Adverse Reactions: amoxicillin [Amoxicillin] Allergy (Unknown, Verified 09/05/20 14:48) Penicillins Allergy (Verified 09/05/20 14:48) Past Medical History - Social History Chew tobacco use (# tins/day): No Frequency of alcohol use: None Drug Abuse: None Pulmonary Medical History: Reports: Hx Asthma Renal/ Medical History: Reports: Hx Kidney Stones. Denies: Hx Peritoneal Dialysis Psychiatric Medical History: Reports: Hx Depression Past Surgical History: Reports: Hx Orthopedic Surgery - R middle finger, Hx Tonsillectomy - Immunizations Immunizations up to date: Yes Hx Diphtheria, Pertussis, Tetanus Vaccination: Yes Physical Exam - Vital signs Vitals: Temp Pulse Resp BP Pulse Ox 98.7 F 110 H 20 137/82 H 97 09/05/20 14:38 09/05/20 14:38 09/05/20 14:38 09/05/20 14:38 09/05/20 14:38 Course - Vital Signs Vital signs: Temp Pulse Resp BP Pulse Ox 98.7 F 110 H 20 137/82 H 97 09/05/20 14:38 09/05/20 14:38 09/05/20 14:38 09/05/20 14:38 09/05/20 14:38
--- NOTE | 2020-09-05 15:32 | RADIOLOGY REPORT (SQ) ---
EXAM DESCRIPTION: CT ABD/PELVIS NO ORAL OR IV IMAGES COMPLETED DATE/TIME: 09/05/2020 3:11 pm REASON FOR STUDY: flank pain COMPARISON: CT of the abdomen and pelvis without contrast from 08/30/2020. TECHNIQUE: CT scan of the abdomen and pelvis performed without intravenous or oral contrast. Images reviewed with lung, soft tissue, and bone windows. Reconstructed coronal and sagittal MPR images revi ewed. All images stored on PACS. All CT scanners at this facility use dose modulation, iterative reconstruction, and/or weight based d osing when appropriate to reduce radiation dose to as low as reasonably achievable (ALARA). [facility]: Dose Right [facility]: CareDose [facility]: Dose Right [facility]: Teradose 4D [facility]: [employer] RADIATION DOSE: CT Rad equipment meets quality standard of care and radiation dose reduction techniq ues were employed. CTDIvol: 8.6 mGy. DLP: 497 mGy-cm. LIMITATIONS: None. FINDINGS: LOWER CHEST: No acute abnormality NON-CONTRASTED LIVER, SPLEEN, ADRENALS: Evaluation is limited by the absence of intravenous contrast. The relative low attenuation of the hepatic parenchyma is suggestive of underlying hepatic steatosi s. The spleen is normal in size. There is a 10 mm accessory splenule inferior to the spleen. There is no adrenal mass. PANCREAS: No acute gross abnormality of the pancreas. GALLBLADDER: No acute gross abnormality of the gallbladder. RIGHT KIDNEY AND URETER: Evaluation is limited by the absence of intravenous contrast. The position of the 4 mm ureteral calculus and the degree of associated hydronephrosis are unchanged. There is no other renal or ureteral calculus. LEFT KIDNEY AND URETER: Evaluation is limited by the absence of intravenous contrast. There is no hy dronephrosis, nephrolithiasis, hydroureter or ureterolithiasis AORTA AND RETROPERITONEUM: No aneurysm of the abdominal aorta. No retroperitoneal adenopathy, hemorr zoey or mass. BOWEL AND PERITONEAL CAVITY: There is no bowel obstruction, bowel wall thickening or pericolonic/ per ienteric inflammation. There is no mesenteric adenopathy, free intraperitoneal fluid or mesenteric/o mental inflammation. APPENDIX: Normal. PELVIS, BLADDER, AND ABDOMINAL WALL: The urinary bladder is contracted. There is a miniscule fat co ntaining umbilical hernia. BONES: No fracture or osseous lesion. OTHER: No other finding. IMPRESSION: The position of the 4 mm right-sided ureteral calculus and the degree of associated hydr onephrosis are unchanged. COMMENT: Quality ID # [id number]: Final reports with documentation of one or more dose reduction techniques (e.g., Automated exposure control, adjustment of the mA and/or kV according to patient size, use of iterative reconstruction technique) TECHNICAL DOCUMENTATION: JOB ID: [id number] 2010 [employer]- All Rights Reserved Reading location - IP/workstation name: [email or web address]
[2020-09-05] MEDS ORDERED: MORPHINE SULFATE 10 MG/ML INJ IV ONE (15:35)
[2020-09-05 15:44] LABS: HEMATOCRIT 46.4 % (37.9-51.0); HEMOGLOBIN 16.1 g/dL (13.5-17.0); MEAN CORPUSCULAR HEMOGLOBIN 30.4 pg (27.0-33.4); MEAN CORPUSCULAR HGB CONC 34.8 g/dL (32.0-36.0); MEAN CORPUSCULAR VOLUME 87 fl (80-97); PLATELET COUNT 199 10^3/uL (150-450); WHITE BLOOD COUNT 4.5 10^3/uL (4.0-10.5)
[2020-09-05 15:46] LABS: APPEARANCE,URINE SLIGHTLY-CLOUDY; BILIRUBIN,URINE NEGATIVE (NEGATIVE); COLOR,URINE YELLOW; GLUCOSE, URINE NEGATIVE (NEGATIVE); KETONES,URINE 20 mg/dL (NEGATIVE); LEUKOCYTE ESTERASE,URINE TRACE (NEGATIVE); NITRITE,URINE NEGATIVE (NEGATIVE); PROTEIN,URINE 30 mg/dL (NEGATIVE); URINE SPECIFIC GRAVITY 1.021; UROBILINOGEN,URINE NEGATIVE mg/dL (<2.0)
[2020-09-05 16:01] LABS: ALBUMIN 4.7 g/dL (3.5-5.0); ALKALINE PHOSPHATASE 87 U/L (38-126); ANION GAP 14 (5-19); ASPARTATE AMINO TRANSFERASE 44 U/L (17-59); BILIRUBIN,DIRECT 0.2 mg/dL (0.0-0.4); BILIRUBIN,TOTAL 0.6 mg/dL (0.2-1.3); BLOOD UREA NITROGEN 11 mg/dL (7-20); CALCIUM 9.5 mg/dL (8.4-10.2); CARBON DIOXIDE 28 mmol/L (22-30); CHLORIDE 101 mmol/L (98-107); GLUCOSE 91 mg/dL (75-110); TOTAL PROTEIN 7.7 g/dL (6.3-8.2)
[2020-09-05 16:22] LABS: ABSOLUTE LYMPHOCYTES# (MANUAL) 1.8 10^3/uL (0.5-4.7); BASOPHILS % (MANUAL) 0 % (0-2); EOSINOPHILS % (MANUAL) 0 % (0-6); LYMPHOCYTES % (MANUAL) 24 % (13-45); MONOCYTES % (MANUAL) 23 % (3-13); SEGMENTED NEUTROPHILS % (MAN) 36 % (42-78); TOTAL CELLS COUNTED 100
[2020-09-05 16:23] LABS: PLATELET COMMENT ADEQUATE; RBC MORPHOLOGY COMMENT NORMO-CYTIC/CHROMIC
--- NOTE | 2020-09-05 17:03 | ER Document Report ---
ED General - General Chief Complaint: Flank Pain Stated Complaint: FLANK PAIN Time Seen by Provider: 09/05/20 14:50 Mode of Arrival: Ambulatory Information source: Patient TRAVEL OUTSIDE OF THE [place] IN LAST 30 DAYS: No - HPI Notes: Patient presents with right flank pain. He states it is severe. Is constant. Nothing makes better or worse. Radiates to the right flank down to the right lower abdomen. He states he has had a kidney stone for approximately 1 month and has been here multiple x4. He states he was unable to see a urologist. He states he had a urologist appointment today but he could not get a ride. He states he has had multiple kidney stones in the past. Patient has had some nausea and vomiting as well. - Related Data Allergies/Adverse Reactions: amoxicillin [Amoxicillin] Allergy (Unknown, Verified 09/05/20 14:48) Penicillins Allergy (Verified 09/05/20 14:48) Past Medical History - General Information source: Patient - ACLS - Social History Smoking Status: Never Smoker Chew tobacco use (# tins/day): No Frequency of alcohol use: None Drug Abuse: None Family History: Reviewed & Not Pertinent Pulmonary Medical History: Reports: Hx Asthma Renal/ Medical History: Reports: Hx Kidney Stones. Denies: Hx Peritoneal Dialysis Psychiatric Medical History: Reports: Hx Depression Past Surgical History: Reports: Hx Orthopedic Surgery - R middle finger, Hx Tonsillectomy - Immunizations Immunizations up to date: Yes Hx Diphtheria, Pertussis, Tetanus Vaccination: Yes Review of Systems - Review of Systems Constitutional: denies: Chills, Fever Cardiovascular: denies: Chest pain, Palpitations Respiratory: denies: Cough, Short of breath -: Yes All other systems reviewed and negative Physical Exam - Vital signs Vitals: Temp Pulse Resp BP Pulse Ox 98.7 F 110 H 20 137/82 H 97 09/05/20 14:38 09/05/20 14:38 09/05/20 14:38 09/05/20 14:38 09/05/20 14:38 Interpretation: Tachycardic - General General appearance: Appears well, Alert - HEENT Head: Normocephalic, Atraumatic Eyes: Normal Pupils: PERRL - Respiratory Respiratory status: No respiratory distress Chest status: Nontender Breath sounds: Normal Chest palpation: Normal - Cardiovascular Rhythm: Tachycardia Heart sounds: Normal auscultation Murmur: No - Abdominal Inspection: Normal Distension: No distension Bowel sounds: Normal Tenderness: Nontender Organomegaly: No organomegaly - Back Back: Normal, Tender, CVA tenderness - Extremities General upper extremity: Normal inspection, Nontender, Normal color, Normal ROM, Normal temperature General lower extremity: Normal inspection, Nontender, Normal color, Normal ROM, Normal temperature, Normal weight bearing. No: Brooklyn's sign - Neurological Neuro grossly intact: Yes Cognition: Normal Orientation: AAOx4 Sally Coma Scale Eye Opening: Spontaneous Sally Coma Scale Verbal: Oriented [place]ondo Coma Scale Motor: Obeys Commands Sally Coma Scale Total: 15 Speech: Normal Motor strength normal: LUE, RUE, LLE, RLE Sensory: Normal - Psychological Associated symptoms: Normal affect, Normal mood - Skin Skin Temperature: Warm Skin Moisture: Dry Skin Color: Normal Course - Re-evaluation Re-evalutation: 09/05/20 17:00 Patient presents with persistent right flank pain. CT shows no significant change from previous CT this patient has a 4 mm ureteral stone pain which in the same position as previous. There is no signs of elevated creatinine or BUN. No elevated white blood cell count or fevers. He has no evidence of infection on urinalysis. At this time I will discharge patient home with pain medicine and urged him to please follow-up with urology as he has been scheduled. - Vital Signs Vital signs: Temp Pulse Resp BP Pulse Ox 98.7 F 110 H 20 137/82 H 97 09/05/20 14:38 09/05/20 14:38 09/05/20 14:38 09/05/20 14:38 09/05/20 14:38 - Laboratory Results Result Diagrams: 09/05/20 15:15 09/05/20 15:15 Laboratory Results Interpreted: 09/05/20 09/05/20 15:15 15:15 Seg Neuts % (Manual) 36 L Monocytes % (Manual) 23 H Abs Neuts (Manual) 1.6 L Urine Protein 30 H Urine Ketones 20 H Urine Blood SMALL H Ur Leukocyte Esterase TRACE H Critical Laboratory Results Reviewed: No Critical Results - Radiology Results Critical Radiology Results Reviewed: No Critical Results Discharge - Discharge Clinical Impression: Urolithiasis Qualifiers: Urinary calculus location: ureter Qualified Code(s): N20.1 - Calculus of ureter Condition: Stable Disposition: HOME, SELF-CARE Instructions: Kidney Stone ([facility]) Additional Instructions: Please follow-up with urology as scheduled Prescriptions: Oxycodone HCl/Acetaminophen [Percocet 5-325 mg Tablet] 1 - 2 tab PO Q4H PRN #15 tablet PRN Reason: Ondansetron [Zofran Odt 4 mg Tablet] 1 - 2 tab PO Q4H PRN #15 tab.rapdis PRN Reason: For Nausea/Vomiting Forms: Return to Work Referrals: ANTHONY ARAUJO MD [NO LOCAL MD] - Follow up in 3-5 days
[2020-09-05 17:45] VITALS: BP 137/87
[2020-09-06 11:40] LABS: PATH REVIEW PATHOLOGIST REVIEWED
== END 2020-09-05 17:45 | disposition home or self-care (01) ==
LOC: ER 14:19
DX: N13.2 Hydronephrosis with renal and ureteral calculous obstruction (principal); R11.2 Nausea with vomiting, unspecified; R00.0 Tachycardia, unspecified; J45.909 Unspecified asthma, uncomplicated; Z88.0 Allergy status to penicillin
CPT/HCPCS: 99285; 96372; 96374; 36415; 85025; 80053; 81001; 74176; J1885; J2270